=== PATIENT | female | born 1990 | race Caucasian/White ===

== ENCOUNTER 2020-11-17 08:37 | Inpatient (IN) | payer MEDICAID, SELFPAY ==
[2020-11-17] VITALS (7 sets, daily range): BP systolic 102–134; BP diastolic 64–86; PULSE 65–88; RESP 16–18; TEMP 36.4–37.4; O2SAT 94–99; BMI 30.8
--- NOTE | 2020-11-17 08:46 | XR_ITS ---
EXAMINATION: RIGHT LOWER LEG AND RIGHT FOOT X-RAY CLINICAL INFORMATION: Fall COMPARISON: Previous right knee and right ankle x-ray July 2019 TECHNIQUE: 2 views of the right lower leg and 2 views of the right foot FINDINGS: Right lower leg: There is an oblique fracture of the distal shaft of the tibia. There is 1 cm lateral and posterior displacement of the distal tibia with respect to the more proximal shaft. There is an oblique fracture of the proximal fibular shaft. There is 8 mm anterior displacement of the distal shaft with respect to the more proximal fibular head and the knee joint and ankle joint appear unremarkable. Right foot: Frontal view is limited due to dressing or stabilization material. No foot fracture or dislocation is seen. Joint spaces and soft tissues are unremarkable. Oblique fracture of the distal shaft of the tibia is noted. XR/XR foot RT 2V IMPRESSION: Right lower leg: Oblique displaced fractures of the distal shaft of the tibia and proximal shaft of the fibula. Right foot: Limited but unremarkable exam
--- NOTE | 2020-11-17 08:46 | XR_ITS ---
EXAMINATION: RIGHT LOWER LEG AND RIGHT FOOT X-RAY CLINICAL INFORMATION: Fall COMPARISON: Previous right knee and right ankle x-ray July 2019 TECHNIQUE: 2 views of the right lower leg and 2 views of the right foot FINDINGS: Right lower leg: There is an oblique fracture of the distal shaft of the tibia. There is 1 cm lateral and posterior displacement of the distal tibia with respect to the more proximal shaft. There is an oblique fracture of the proximal fibular shaft. There is 8 mm anterior displacement of the distal shaft with respect to the more proximal fibular head and the knee joint and ankle joint appear unremarkable. Right foot: Frontal view is limited due to dressing or stabilization material. No foot fracture or dislocation is seen. Joint spaces and soft tissues are unremarkable. Oblique fracture of the distal shaft of the tibia is noted. XR/XR tibia fibula RT 2V IMPRESSION: Right lower leg: Oblique displaced fractures of the distal shaft of the tibia and proximal shaft of the fibula. Right foot: Limited but unremarkable exam
[2020-11-17] MEDS: oxyCODONE HCl Immed Release 5 MG TABLET PO ×3 (09:09→19:44)
--- NOTE | 2020-11-17 09:41 | ED_ITS ---
HPI - Extremity Injury (Lower) General Chief Complaint: Extremity Injury, Lower <Ishan García NP - Last Filed: 11/17/20 15:52> Stated Complaint: R ANKLE PAIN <Ishan García NP - Last Filed: 11/17/20 15:52> Time Seen by Provider: 11/17/20 08:46 <Ishan García NP - Last Filed: 11/17/20 15:52> Source: EMS <Ishan García NP - Last Filed: 11/17/20 15:52> Mode of arrival: EMS <Ishan García NP - Last Filed: 11/17/20 15:52> Limitations: no limitations <Ishan García NP - Last Filed: 11/17/20 15:52> History of Present Illness HPI Narrative: This is a pleasant 30-year-old female who denies any significant past medical history she does have a young child with autism and she is 1 month and for the young child that she has has autism and on a daily basis she gets a surprise for him this morning she got a note book for him to draw which she had her car she when out to get this there was ice as she made her way back into the house she slipped on ice and almost instantly had pain in the right lower extremity and unable to ambulate or bear weight on it. Again she is 1 month she does not breastfeed. She has otherwise had unremarkable period. She arrives via EMS with with slight swelling distal medial wright area where she is having pain. She denies any other injury, head strike or torso injury. <Ishan García NP - Last Filed: 11/17/20 15:52> MD complaint: leg injury and ankle injury <Ishan García NP - Last Filed: 11/17/20 15:52> Other symptoms: none <Ishan García NP - Last Filed: 11/17/20 15:52> Treatments prior to arrival: cold therapy <Ishan García NP - Last Filed: 11/17/20 15:52> Related Data Home Medications: Previous Rx's Medication Instructions Recorded acetaminophen 650 mg PO Q6H 30 Days #240 tab 11/19/20 sennosides [Senna Lax] 17.2 mg PO BID 30 Days #120 tab 11/19/20 oxycodone 5 mg tablet 5 mg PO Q6H PRN 7 Days #28 tab 11/25/20 <Ishan García NP - Last Filed: 11/17/20 15:52> Allergies/Adverse Reactions: Allergies Allergy/AdvReac Type Severity Reaction Status Date / Time No Known Allergies Allergy Verified 11/18/20 07:18 <Ishan García NP - Last Filed: 11/17/20 15:52> Review of Systems Review of Systems: Constitutional: No Weight loss, No Fever, No Chills, No Night Sweats, No Fatigue, No Malaise ENT/Mouth: No Hearing loss, No Ear Pain, No Nasal Congestion, No Sinus Pain, No Hoarseness, No sore throat, No Rhinorrhea, No Swallowing Difficulty Eyes: No Eye Pain, No Swelling, No Redness, No Foreign Body, No Discharge, No Vision Changes Cardiovascular: No Chest Pain, No SOB, No Dyspnea on Exertion, No Orthopnea, No Edema, No Palpitations Respiratory: No Cough, No Sputum, No Wheezing, No Smoke Exposure, No Dyspnea Gastrointestinal: Negative Genitourinary: Negative Musculoskeletal: No joint pain, No Myalgias, No Joint Swelling, as noted per HPI Skin: No Skin Lesions, No rash Neuro: No Weakness, No Numbness, No Paresthesias, No Loss of Consciousness, No D izziness, No Headache Psych: No Social Issues Heme/Lymph: Negative Endocrine: Negative <Ishan García NP - Last Filed: 11/17/20 15:52> Yes all other systems are reviewed and are negative <Ishan García NP - Last Filed: 11/17/20 15:52> [facility] Past Medical History Medical History: Medical History (Updated 11/27/20 @ 00:01 by Krystal Wang) Anemia Back pain Leukocytosis <Ishan García NP - Last Filed: 11/17/20 15:52> Surgical History: Surgical History (Updated 11/18/20 @ 07:33 by Alice Umana) H/O reduction mammoplasty Hx laparoscopic cholecystectomy <Ishan García NP - Last Filed: 11/17/20 15:52> Social History Social History: Social History Household Members: Family Housing: House Smoking Status: Light tobacco smoker Tobacco Type: Cigarette Advance Directives Date on File: 11/17/20 service: No Current occupational status: employed <Ishan García NP - Last Filed: 11/17/20 15:52> Physical Exam Vital Signs: Vital Signs: Last Vital Signs Temp 98.2 F 11/19/20 07:38 Pulse 85 11/19/20 07:50 Resp 18 11/19/20 07:38 BP 110/63 11/19/20 07:50 Pulse Ox 96 11/19/20 07:50 Body Mass Index 30.8 Reviewed <Ishan García NP - Last Filed: 11/17/20 15:52> Vital Signs: Last Vital Signs Temp 98.2 F 11/19/20 07:38 Pulse 85 11/19/20 07:50 Resp 18 11/19/20 07:38 BP 110/63 11/19/20 07:50 Pulse Ox 96 11/19/20 07:50 Body Mass Index 30.8 <Ignacio Meléndez MD - Last Filed: 11/30/20 07:04> Const: Other: Resting comfortably no acute restless but when she moved EMS stretcher to the hospital gurney grimacing and complaining of pain. <Ishan García NP - Last Filed: 11/17/20 15:52> General: cooperative; No intoxicated appearing <Ishan García NP - Last Filed: 11/17/20 15:52> Nutritional Appearance: average body habitus <Ishan García NP - Last Filed: 11/17/20 15:52> Orientation/consciousness: patient oriented x3 <Ishan García NP - Last Filed: 11/17/20 15:52> HENMT: Head: Yes normal to inspection <Ishan García NP - Last Filed: 11/17/20 15:52> Ears: hearing grossly normal bilaterally <Ishan García NP - Last Filed: 11/17/20 15:52> Eyes: General: appearance normal, both eyes and all related structures <Ishan García NP - Last Filed: 11/17/20 15:52> Visual Sainz: normal visual sainz by confrontation <Ishan García NP - Last Filed: 11/17/20 15:52> Neck: Neck: Yes normal visual inspection, No positive Brudzinski's sign, No positive Kernig's sign and No tender <[facility] Raquel [facility] Last Filed: 11/17/20 15:52> Thyroid: Thyroid normal <[facility] Raquel [facility] Last Filed: 11/17/20 15:52> Chest: Chest palpation & inspection: normal inspection of the chest <[facility] García [facility] Last Filed: 11/17/20 15:52> Resp: Effort & Inspection: normal respiratory effort <[facility] Raquel [facility] Last Filed: 11/17/20 15:52> Auscultation: clear to auscultation bilaterally <[facility] García - Last Filed: 11/17/20 15:52> Cardio: Jugular venous distension: no JVD <[facility] Raquel [facility] Last Filed: 11/17/20 15:52> Rate: regular rate [facility] - Last Filed: 11/17/20 15:52> Rhythm: regular rhythm <[facility] Last Filed: 11/17/20 15:52> Heart sounds: S1 normal heart sound present and S2 normal heart sound present <[facility] García [facility] Last Filed: 11/17/20 15:52> GI: Inspection: Yes normal to inspection <[facility] Raquel [facility] Last Filed: 11/17/20 15:52> Percussion: Yes normal to percussion <[facility] García [facility] Last Filed: 11/17/20 15:52> Auscultation: normal bowel sounds <[facility] García [facility] Last Filed: 11/17/20 15:52> : General: Yes no CVA tenderness <[facility] García [facility] Last Filed: 11/17/20 15:52> Back/Spine/Pelvis: Back: no CVA tenderness <[facility] García - Last Filed: 11/17/20 15:52> Skin: General skin exam: no rashes or lesions noted <[facility] García [facility] Last Filed: 11/17/20 15:52> Neuro: General: patient oriented x3 <[facility] García, - Last Filed: 11/17/20 15:52> Extrem: General: Yes normal to inspection <Ishan García NP - Last Filed: 0 11/17/20 15:52> Course Course Course Narrative: In review otherwise healthy 30-year-old female presenting with right lower extremity pain status post slip and fall on ice AP/exam highly suspicious for acute fracture. Right lower extremity immobilized patient will get x-rays and p.o. analgesia. Otherwise no other medical complaints. Will consult Ortho p.r.n.. <Ishan García NP - Last Filed: 11/17/20 15:52> I have reviewed the chart <Ignacio Meléndez MD - Last Filed: 11/30/20 07:04> Reevaluation(s) Reevaluation #1: I reviewed the x-ray right after patient the x-ray soon after arrival shows findings consistent with oblique fracture of the distal shaft of the tibia and the proximal shaft of the fibula. I texted these images via Zhenaier text to orthopedic team and Lillie who discussed case with . Kristalum will come evaluate patient at bedside and likely plan will be for instrumentation tomorr ow. Does screening labs including screen COVID ordered. Findings reviewed with patient in great detail. <Ishan García NP - Last Filed: 11/17/20 15:52> Reevaluation #2: Placed in a posterior short leg splint with sugar-tong. Remains neurovascularly intact. Soft and no findings to suggest compartment. <Ishan García NP - Last Filed: 11/17/20 15:52> MDM - Extremity Injury (Lower) Differential Diagnosis Differential diagnosis: Likely ankle fracture <Ishan García NP - Last Filed: 11/17/20 15:52> Medical Records Attestation: I reviewed the patient's medical records. <Ishan García NP - Last Filed: 11/17/20 15:52> Lab Data Attestation: I reviewed the patient's lab results. <Ishan García NP - Last Filed: 11/17/20 15:52> Result diagrams: : 11/19/20 05:53 11/19/20 05:53 <Ishan García NP - Last Filed: 11/17/20 15:52> Labs: Lab Results 02/03/21 02/03/21 02/03/21 Range/Units 10:29 10:29 10:29 WBC 17.1 H (4.8-10.8) X10*3/uL RBC 4.19 L (4.20-5.50) X10*6/uL Hgb 11.4 L (12.0-16.0) g/dl Hct 35.2 L (37-47) % MCV 84.0 (80-98) fL MCH 27.2 (27.0-33.0) pg MCHC 32.4 (31.0-35.0) g/dl RDW 14.1 (11.0-16.0) % Plt Count 472 H (160-400) X10*3/uL MPV 10.0 (9.4-12.3) fL Immature Gran % (Auto) 0.5 H (0.0-0.4) % Neut % (Auto) 80.4 H (45-73) % Lymph % (Auto) 12.0 L (20-40) % Barnes % (Auto) 6.1 (2-11) % Eos % (Auto) 0.6 (0-4) % Baso % (Auto) 0.4 (0-2) % Lymph # (Auto) 2.0 (1.2-4.9) X10*3/uL Barnes # (Auto) 1.0 (0.1-1.2) X10*3/uL Eos # (Auto) 0.1 (0.0-0.4) X10*3/uL Baso # (Auto) 0.1 (0.0-0.2) X10*3/uL Abs Immat Gran (auto) 0.08 H (0.00-0.03) X10*3/uL Absolute Neuts (auto) 13.7 H (2.0-8.3) X10*3/uL Absolute Nucleated RBC 0.000 (0.0-0.012) X10*3/uL Nucleated RBC % (auto) 0.0 (0.0-0.2) /100WBC PT 12.9 (10.8-13.0) SEC INR 1.1 (0.9-1.1) APTT 43.5 H (24.1-38.0) SEC Sodium 140 (135-145) mmol/L Potassium 4.6 (3.3-5.1) mmol/L Chloride 108 (96-108) mmol/L Carbon Dioxide 25 (22-29) mmol/L Anion Gap 12 (12-20) BUN 12 (9-16) mg/dL Creatinine 0.84 (0.5-1.4) mg/dL Estim Creat Clear Calc 95.6 Estimated GFR > 60 Random Glucose 109 (60-115) mg/dL Calcium 9.0 (8.4-10.2) mg/dL Total Bilirubin < 0.2 (0.0-1.0) mg/dL AST 14 (5-31) U/L ALT 10 (0-31) U/L Alkaline Phosphatase 100 (39-117) U/L Total Protein 6.9 (6.5-8.0) g/dL Albumin 4.2 (3.5-5.0) g/dL Beta HCG, Quant < 2 mIU/mL COVID-19 (MARTIN) (Negative) COVID-19 Clin Com 11/17/20 Range/Units 10:53 WBC (4.8-10.8) X10*3/uL RBC (4.20-5.50) X10*6/uL Hgb (12.0-16.0) g/dl Hct (37-47) % MCV (80-98) fL MCH (27.0-33.0) pg MCHC (31.0-35.0) g/dl RDW (11.0-16.0) % Plt Count (160-400) X10*3/uL MPV (9.4-12.3) fL Immature Gran % (Auto) (0.0-0.4) % Neut % (Auto) (45-73) % Lymph % (Auto) (20-40) % Barnes % (Auto) (2-11) % Eos % (Auto) (0-4) % Baso % (Auto) (0-2) % Lymph # (Auto) (1.2-4.9) X10*3/uL Barnes # (Auto) (0.1-1.2) X10*3/uL Eos # (Auto) (0.0-0.4) X10*3/uL Baso # (Auto) (0.0-0.2) X10*3/uL Abs Immat Gran (auto) (0.00-0.03) X10*3/uL Absolute Neuts (auto) (2.0-8.3) X10*3/uL Absolute Nucleated RBC (0.0-0.012) X10*3/uL Nucleated RBC % (auto) (0.0-0.2) /100WBC PT (10.8-13.0) SEC INR (0.9-1.1) APTT (24.1-38.0) SEC Sodium (135-145) mmol/L Potassium (3.3-5.1) mmol/L Chloride (96-108) mmol/L Carbon Dioxide (22-29) mmol/L Anion Gap (12-20) BUN (9-16) mg/dL Creatinine (0.5-1.4) mg/dL Estim Creat Clear Calc Estimated GFR Random Glucose (60-115) mg/dL Calcium (8.4-10.2) mg/dL Total Bilirubin (0.0-1.0) mg/dL AST (5-31) U/L ALT (0-31) U/L Alkaline Phosphatase (39-117) U/L Total Protein (6.5-8.0) g/dL Albumin (3.5-5.0) g/dL Beta HCG, Quant mIU/mL COVID-19 (MARTIN) Negative (Negative) COVID-19 Clin Com See Note <Ishan García NP - Last Filed: 11/17/20 15:52> Lab Results 11/17/20 11/17/20 11/17/20 Range/Units 10:29 10:29 10:29 WBC 17.1 H (4.8-10.8) X10*3/uL RBC 4.19 L (4.20-5.50) X10*6/uL Hgb 11.4 L (12.0-16.0) g/dl Hct 35.2 L (37-47) % MCV 84.0 (80-98) fL MCH 27.2 (27.0-33.0) pg MCHC 32.4 (31.0-35.0) g/dl RDW 14.1 (11.0-16.0) % Plt Count 472 H (160-400) X10*3/uL MPV 10.0 (9.4-12.3) fL Immature Gran % (Auto) 0.5 H (0.0-0.4) % Neut % (Auto) 80.4 H (45-73) % Lymph % (Auto) 12.0 L (20-40) % Barnes % (Auto) 6.1 (2-11) % Eos % (Auto) 0.6 (0-4) % Baso % (Auto) 0.4 (0-2) % Lymph # (Auto) 2.0 (1.2-4.9) X10*3/uL Barnes # (Auto) 1.0 (0.1-1.2) X10*3/uL Eos # (Auto) 0.1 (0.0-0.4) X10*3/uL Baso # (Auto) 0.1 (0.0-0.2) X10*3/uL Abs Immat Gran (auto) 0.08 H (0.00-0.03) X10*3/uL Absolute Neuts (auto) 13.7 H (2.0-8.3) X10*3/uL Absolute Nucleated RBC 0.000 (0.0-0.012) X10*3/uL Nucleated RBC % (auto) 0.0 (0.0-0.2) /100WBC PT 12.9 (10.8-13.0) SEC INR 1.1 (0.9-1.1) APTT 43.5 H (24.1-38.0) SEC Sodium 140 (135-145) mmol/L Potassium 4.6 (3.3-5.1) mmol/L Chloride 108 (96-108) mmol/L Carbon Dioxide 25 (22-29) mmol/L Anion Gap 12 (12-20) BUN 12 (9-16) mg/dL Creatinine 0.84 (0.5-1.4) mg/dL Estim Creat Clear Calc 95.6 Estimated GFR > 60 Random Glucose 109 (60-115) mg/dL Calcium 9.0 (8.4-10.2) mg/dL Total Bilirubin < 0.2 (0.0-1.0) mg/dL AST 14 (5-31) U/L ALT 10 (0-31) U/L Alkaline Phosphatase 100 (39-117) U/L Total Protein 6.9 (6.5-8.0) g/dL Albumin 4.2 (3.5-5.0) g/dL Beta HCG, Quant < 2 mIU/mL COVID-19 (MARTIN) (Negative) COVID-19 Clin Com 11/17/20 Range/Units 10:53 WBC (4.8-10.8) X10*3/uL RBC (4.20-5.50) X10*6/uL Hgb (12.0-16.0) g/dl Hct (37-47) % MCV (80-98) fL MCH (27.0-33.0) pg MCHC (31.0-35.0) g/dl RDW (11.0-16.0) % Plt Count (160-400) X10*3/uL MPV (9.4-12.3) fL Immature Gran % (Auto) (0.0-0.4) % Neut % (Auto) (45-73) % Lymph % (Auto) (20-40) % Barnes % (Auto) (2-11) % Eos % (Auto) (0-4) % Baso % (Auto) (0-2) % Lymph # (Auto) (1.2-4.9) X10*3/uL Barnes # (Auto) (0.1-1.2) X10*3/uL Eos # (Auto) (0.0-0.4) X10*3/uL Baso # (Auto) (0.0-0.2) X10*3/uL Abs Immat Gran (auto) (0.00-0.03) X10*3/uL Absolute Neuts (auto) (2.0-8.3) X10*3/uL Absolute Nucleated RBC (0.0-0.012) X10*3/uL Nucleated RBC % (auto) (0.0-0.2) /100WBC PT (10.8-13.0) SEC INR (0.9-1.1) APTT (24.1-38.0) SEC Sodium (135-145) mmol/L Potassium (3.3-5.1) mmol/L Chloride (96-108) mmol/L Carbon Dioxide (22-29) mmol/L Anion Gap (12-20) BUN (9-16) mg/dL Creatinine (0.5-1.4) mg/dL Estim Creat Clear Calc Estimated GFR Random Glucose (60-115) mg/dL Calcium (8.4-10.2) mg/dL Total Bilirubin (0.0-1.0) mg/dL AST (5-31) U/L ALT (0-31) U/L Alkaline Phosphatase (39-117) U/L Total Protein (6.5-8.0) g/dL Albumin (3.5-5.0) g/dL Beta HCG, Quant mIU/mL COVID-19 ([facility]ARTIN) Negative (Negative) COVID-19 Clin Com See Note <Ignacio Meléndez MD - Last Filed: 11/30/20 07:04> Imaging Data Right tib fib, ankle x-ray: Radiologist's impression: [address] [id number] ReportSigned Patient: Samantha Stubbs#: [id number]: [id number] :[id number]/Sex: 30 / FADM Date: 11/17/20Loc: EDAttending Dr: Ordering Physician: Ishan García NP Date of Service: 11/17/20 Procedure(s): XR tibia fibula RT 2V Accession Number(s): [id number] cc: Ishan García NP~ EXAMINATION: RIGHT LOWER LEG AND RIGHT FOOT X-RAY CLINICAL INFORMATION: Fall COMPARISON: Previous right knee and right ankle x-ray July 2019 TECHNIQUE: 2 views of the right lower leg and 2 views of the right foot FINDINGS: Right lower leg: There is an oblique fracture of the distal shaft of the tibia. There is 1 cm lateral and posterior displacement of the distal tibia with respect to the more proximal shaft. There is an oblique fracture of the proximal fibular shaft. There is 8 mm anterior displacement of the distal shaft with respect to the more proximal fibular head and the knee joint and ankle joint appear unremarkable. Right foot: Frontal view is limited due to dressing or stabilization material. No foot fracture or dislocation is seen. Joint spaces and soft tissues are unremarkable. Oblique fracture of the distal shaft of the tibia is noted. XR/XR tibia fibula RT 2V IMPRESSION: Right lower leg: Oblique displaced fractures of the distal shaft of the tibia and proximal shaft of the fibula. Right foot: Limited but unremarkable exam Dictated By:JANNET DEL RIOigned By:<Electronically signed by JANNET DEL RIO MD in OV>11/17/20 0943 DD/ [id number]/TT: Associate Professor Plant Pathology: LAUREN <Ishan García NP - Last Filed: 11/17/20 15:52> Discharge Plan Discharge Clinical Impression: Tibia/fibula fracture <Ishan García NP - Last Filed: 11/17/20 15:52> Patient Disposition: Admitted As Inpatient <Ishan García NP - Last Filed: 11/17/20 15:52> Interventions: Admission Worksheet (ED) Last Done: 11/17/20 20:32 <sIhan García NP - Last Filed: 11/17/20 15:52> Discharge Date/Time: 11/17/20 20:42 <Ishan García NP - Last Filed: 11/17/20 15:52>
[2020-11-17 10:34] LABS: MANUAL DIFF FLAG NO
[2020-11-17] MEDS: ondansetron HCL 4 MG/2 ML VIAL IVPUSH ×2 (10:36→17:12)
--- NOTE | 2020-11-17 10:36 | PM.CNOR ---
History of Present Illness HPI Consult date: 11/17/20 Consult reason: fracture Chief complaint: R ANKLE PAIN PMFSH Past Medical History Medical History (Updated 11/17/20 @ 08:59 by Tiana Pringle) Gallstone Surgical History Surgical History (Updated 11/17/20 @ 08:59 by Tiana Pringle) History of breast augmentation Social History Social History Smoked in Last 30 Days: No Use of substances other than those prescribed or required for medical reasons: No Advance Directives: Yes Advance Directives Information Provided: Yes Advance Directives on File: No Meds Allergies Allergy/AdvReac Type Severity Reaction Status Date / Time No Known Allergies Allergy Unverified 07/01/20 17:19 Physical Exam Vital Signs: Vital Signs: Last Vital Signs Temp 98.3 F 11/17/20 08:54 Pulse 81 11/17/20 08:54 Resp 16 11/17/20 08:54 BP 134/79 11/17/20 08:54 Pulse Ox 97 11/17/20 08:54 Body Mass Index 30.8 Results Labs Result Diagrams: 11/17/20 10:29 11/17/20 10:29 Labs: All other labs normal.
[2020-11-17] MEDS: Morphine Sulfate 4 MG/ML CARTRIDGE IVPUSH (10:38)
[2020-11-17] MEDS: 0.9 % Sodium Chloride 1,000 ML 999 ML IV (10:39)
[2020-11-17 10:40] LABS: Basophils Absolute Auto 0.1 X10*3/uL (0.0-0.2); Basophils Percent Auto 0.4 % (0-2); Eosinophils Absolute Auto 0.1 X10*3/uL (0.0-0.4); Eosinophils Percent Auto 0.6 % (0-4); Hematocrit 35.2 % (37-47); Hemoglobin 11.4 g/dl (12.0-16.0); Imm Gran Abs Auto 0.08 X10*3/uL (0.00-0.03); Imm Gran Pct Auto 0.5 % (0.0-0.4); Mean Corpuscular HGB Conc 32.4 g/dl (31.0-35.0); Mean Corpuscular Hemoglobin 27.2 pg (27.0-33.0); Monocytes Percent Auto 6.1 % (2-11); Neutrophils Absolute Auto 13.7 X10*3/uL (2.0-8.3); Neutrophils Percent Auto 80.4 % (45-73); Platelet Count 472 X10*3/uL (160-400); Red Blood Count 4.19 X10*6/uL (4.20-5.50); Red Cell Distribution Width 14.1 % (11.0-16.0); White Blood Count 17.1 X10*3/uL (4.8-10.8)
[2020-11-17 10:44] LABS: INTERNATIONAL NORM RATIO 1.1 (0.9-1.1); Prothrombin Time 12.9 SEC (10.8-13.0)
[2020-11-17 10:46] LABS: Partial Thromboplastin Time 43.5 SEC (24.1-38.0)
--- NOTE | 2020-11-17 11:00 | PC.NURSE ---
POSTERIOR SHORT LEG SPLINT DONE BY SACHA POLANCO.
[2020-11-17 11:04] LABS: Alanine Aminotransferase 10 U/L (0-31); Albumin Level 4.2 g/dL (3.5-5.0); Alkaline Phosphatase 100 U/L (39-117); Anion Gap 12 (12-20); Aspartate Amino Transferase 14 U/L (5-31); Bilirubin Total < 0.2 mg/dL (0.0-1.0); Blood Urea Nitrogen 12 mg/dL (9-16); Carbon Dioxide 25 mmol/L (22-29); Chloride 108 mmol/L (96-108); Creatinine Clr Calc Pharmacy 95.6; Estimated Glomerular Filt Rate > 60; Glucose Random 109 mg/dL (60-115); Potassium 4.6 mmol/L (3.3-5.1); Sodium 140 mmol/L (135-145); Total Protein 6.9 g/dL (6.5-8.0)
[2020-11-17 11:10] LABS: HCG Quantitative < 2 mIU/mL
[2020-11-17 11:21] LABS: COVID-19 Test Negative (Negative); IDNOW Serial# 9DD0AD1C
--- NOTE | 2020-11-17 14:51 | P.HPOP_ITS ---
History of Present Illness History of Present Illness Date of Service: 11/17/20 Chief complaint: Tibia fx Narrative: Samantha Stubbs is a 30 year old female who presented to the ED this morning after sustaining a slip and fall on ice. She states that after the fall she was unable to ambulate or WB. She came to the ED where x-rays were obtained and she was found to have an oblique displaced fracture of the distal shaft of the tibia as well as the proximal shaft of the fibula. Orthopedics was then consulted for further management. Review of Systems Review of Systems: Yes all other systems are reviewed and are negative [facility] Past Medical History Medical History (Updated 11/17/20 @ 14:59 by Lillie Nesbitt PA-C) Gallstone Surgical History Surgical History (Updated 11/17/20 @ 08:59 by Tiana Pringle) History of breast augmentation Social History Social History Smoked in Last 30 Days: No Use of substances other than those prescribed or required for medical reasons: No Advance Directives: Yes Advance Directives Information Provided: Yes Advance Directives on File: No Meds Allergies Allergy/AdvReac Type Severity Reaction Status Date / Time No Known Allergies Allergy Unverified 07/01/20 17:19 Home Medications Medication Instructions Recorded Confirmed Type ibuprofen 600 mg PO Q6H PRN 11/17/20 11/17/20 History Physical Exam Vital Signs: Vital Signs: Last Vital Signs Temp 98.3 F 11/17/20 08:54 Pulse 66 11/17/20 10:55 Resp 18 11/17/20 10:55 BP 112/71 11/17/20 10:55 Pulse Ox 99 11/17/20 10:55 Body Mass Index 30.8 Const: General: cooperative, healthy appearing, comfortable, no acute distress, well developed, alert and awake Orientation/consciousness: patient oriented x3 HENMT: Head: Yes normal to inspection, Yes normocephalic and Yes atraumatic Eyes: General: appearance normal, both eyes and all related structures Neck: Neck: Yes normal visual inspection and Yes no lymphadenopathy Resp: Effort & Inspection: normal respiratory effort and able to speak in complete sentences Cardio: Rate: regular rate Peripheral pulses: Peripheral pulses 2+ throughout GI: Inspection: Yes normal to inspection Palpation (GI): Soft to palpation Skin: General skin exam: no rashes or lesions noted Neuro: General: patient oriented x3 Extrem: Other: Right lower extremity no redness, ecchymosis or obvious deformity. Patient has some mild swelling over the fracture site. Palpation over the fracture site reveals discomfort. Patient is able to dorsiflex and plantar flex the rt foot and move all digits. Pedal pulse intact. Sensation intact and equal bilaterally. Normal capillary refill. Psych: Mental Status: mental status grossly normal Results Labs Result Diagrams: 11/17/20 10:11/17/20 10: Labs: Abnormal lab results 11/17/20 11/17/20 Range/Units 10: 10: WBC 17.1 H (4.8-10.8) X10*3/uL RBC 4.19 L (4.20-5.50) X10*6/uL Hgb 11.4 L (12.0-16.0) g/dl Hct 35.2 L (37-47) % Plt Count 472 H (160-400) X10*3/uL Immature Gran % (Auto) 0.5 H (0.0-0.4) % Neut % (Auto) 80.4 H (45-73) % Lymph % (Auto) 12.0 L (20-40) % Abs Immat Gran (auto) 0.08 H (0.00-0.03) X10*3/uL Absolute Neuts (auto) 13.7 H (2.0-8.3) X10*3/uL APTT 43.5 H (24.1-38.0) SEC H & H 11/17/20 Range/Units 10:29 Hgb 11.4 L (12.0-16.0) g/dl Hct 35.2 L (37-47) % Coagulation 11/17/20 Range/Units 10:29 INR 1.1 (0.9-1.1) All other labs normal. Assessment and Plan (1) Tibia/fibula fracture: Status: Acute I discussed the case with Dr. Brown and explained the extent of the injury to the patient and options available which include surgical intervention. I explained the procedure in detail along with the length of recovery and rehab course. I explained the risk, benefits and alternatives. Risk including, but not limited to infection, blood clots, bleeding, non union or malunion and nerve/tissue damage to surrounding areas. I answered all their questions and with their understanding they have consented to move forward with Operative Fixation of the right tibia. The patient will be T&S, med clearance obtained and NPO after midnight.
[2020-11-17 17:09] LABS: MANUAL DIFF FLAG NO
[2020-11-17 17:12] LABS: Basophils Percent Auto 0.2 % (0-2); Eosinophils Absolute Auto 0.1 X10*3/uL (0.0-0.4); Eosinophils Percent Auto 0.4 % (0-4); Hemoglobin 10.7 g/dl (12.0-16.0); Imm Gran Abs Auto 0.04 X10*3/uL (0.00-0.03); Imm Gran Pct Auto 0.3 % (0.0-0.4); Lymphocytes Absolute Auto 2.2 X10*3/uL (1.2-4.9); Lymphocytes Percent Auto 16.6 % (20-40); Mean Corpuscular HGB Conc 32.4 g/dl (31.0-35.0); Mean Corpuscular Volume 83.1 fL (80-98); Mean Platelet Volume 10.1 fL (9.4-12.3); Monocytes Absolute Auto 0.9 X10*3/uL (0.1-1.2); Monocytes Percent Auto 6.4 % (2-11); Neutrophils Absolute Auto 10.3 X10*3/uL (2.0-8.3); Neutrophils Percent Auto 76.1 % (45-73); Platelet Count 482 X10*3/uL (160-400); Red Blood Count 3.97 X10*6/uL (4.20-5.50); Red Cell Distribution Width 13.8 % (11.0-16.0); White Blood Count 13.5 X10*3/uL (4.8-10.8)
[2020-11-17 17:12] LABS: Glucose Urine UA NEG (NEG); Leukocyte Esterase Urine NEG (NEG); Nitrite Urine NEG (NEG); Specific Gravity - Urine 1.015 (1.005-1.025); Urine Blood NEG (NEG); Urine Ketones NEG (NEG); Urine Protein NEG (NEG-TRACE)
[2020-11-17] MEDS: Acetaminophen 325 MG TABLET 650 MG PO (17:12)
[2020-11-17 17:14] LABS: Appearance Urine CLEAR; Color Urine YELLOW
[2020-11-17] MEDS: Morphine Sulfate 2 MG/ML CARTRIDGE IVPUSH ×2 (17:15→21:30)
[2020-11-17] MEDS: Lactated Ringers 1,000 ML 125 ML IVCONT (17:24)
[2020-11-17] MEDS: 0.9 % Sodium Chloride Flush 3 ML SYRINGE IVFLUSH (17:25)
--- NOTE | 2020-11-17 17:25 | P.CONAN_ITS ---
HPI - Anesthesia Eval Consult details Narrative: 30yo female patient here for Right tibial IM nailing Patient is [facility] month post [facility] Past Medical History Medical History (Updated 11/18/20 @ 07:51 by Alice Umana) Anemia Back pain Family History Family history of problems with anesthesia: No Surgical History Surgical History (Updated 11/18/20 @ 07:33 by Alice Umana) H/O reduction mammoplasty Hx laparoscopic cholecystectomy History of Problems with Anesthesia: No Social History Social History Household Members: Family Housing: House Do you presently have visiting nurse or other home services: No Smoking Status: Light tobacco smoker Tobacco Type: Cigarette Smoked in Last 30 Days: Yes Patient Interested in Nicotine Replacement: No Patient Given Instructions on How to Stop Smoking: Yes Date Education Initiated: 11/17/20 Use of substances other than those prescribed or required for medical reasons: No Currently Displaying Signs/Symptoms of Drug Intoxication Withdrawal: No Have you been hit, kicked, punched, or otherwise hurt by someone within the past year? If so, by whom?: No Do you feel safe in your current relationship?: Yes Is there a partner from a previous relationship who is making you feel unsafe now?: No Are you made to feel afraid or neglected: No Sikhism Healthcare Practices: jewish Advance Directives: Yes Advance Directives Information Provided: Yes Advance Directives on File: No Advance Directives Date on File: 11/17/20 Do you have thoughts of harming others: None Do you have a plan to hurt others: No Plan Recently lost weight without trying: No Meds Allergies Allergy/AdvReac Type Severity Reaction Status Date / Time No Known Allergies Allergy Verified 11/18/20 07:18 Home Medications Medication Instructions Recorded Confirmed Type ibuprofen 600 mg PO Q6H PRN 11/17/20 11/17/20 History Exam Exam Date and Time: November 17, 2020 1725 Height,Weight and Vital Signs: Height 5 ft 3 in Weight 78.925 kg Vital Signs Temp Pulse Resp BP Pulse Ox 11/18/20 06:52 98.5 F 74 15 119/71 97 11/18/20 03:49 98.8 F 69 18 107/69 96 11/17/20 23:46 97.5 F 65 18 106/65 98 11/17/20 20:55 97.8 F 70 18 129/74 94 11/17/20 19:50 99.4 F 65 16 113/64 97 11/17/20 18:00 16 11/17/20 15:41 98.2 F 65 16 102/65 97 11/17/20 10:55 66 18 112/71 99 11/17/20 08:54 98.3 F 81 16 134/79 97 Pertinent Lab Results Pertinent Lab Results: Laboratory Tests 11/17/20 11/17/20 11/17/20 10:29 10:29 10:29 WBC 17.1 H RBC 4.19 L Hgb 11.4 L Hct 35.2 L MCV 84.0 MCH 27.2 MCHC 32.4 RDW 14.1 Plt Count 472 H MPV 10.0 Immature Gran % (Auto) 0.5 H Neut % (Auto) 80.4 H Lymph % (Auto) 12.0 L [place] % (Auto) 6.1 Eos % (Auto) 0.6 Baso % (Auto) 0.4 Lymph # (Auto) 2.0 [place] # (Auto) 1.0 Eos # (Auto) 0.1 Baso # (Auto) 0.1 Abs Immat Gran (auto) 0.08 H Absolute Neuts (auto) 13.7 H Absolute Nucleated RBC 0.000 Nucleated RBC % (auto) 0.0 PT 12.9 INR 1.1 APTT 43.5 H Sodium 140 Potassium 4.6 Chloride 108 Carbon Dioxide 25 Anion Gap 12 BUN 12 Creatinine 0.84 Estim Creat Clear Calc 95.6 Estimated GFR > 60 Random Glucose 109 Calcium 9.0 Total Bilirubin < 0.2 AST 14 ALT 10 Alkaline Phosphatase 100 Total Protein 6.9 Albumin 4.2 Beta HCG, Quant < 2 Urine Color Urine Appearance Urine pH Ur Specific [place] Urine Protein Urine Glucose (UA) Urine Ketones Urine Blood Urine Nitrite Ur Leukocyte Esterase COVID-19 ([facility]) COVID-19 Clin Com Blood Type 11/17/20 11/17/20 11/17/20 10:53 16:59 17:00 WBC 13.5 H RBC 3.97 L Hgb 10.7 L Hct 33.0 L MCV 83.1 MCH 27.0 MCHC 32.4 RDW 13.8 Plt Count 482 H MPV 10.1 Immature Gran % (Auto) 0.3 Neut % (Auto) 76.1 H Lymph % (Auto) 16.6 L [place] % (Auto) 6.4 Eos % (Auto) 0.4 Baso % (Auto) 0.2 Lymph # (Auto) 2.2 [place] # (Auto) 0.9 Eos # (Auto) 0.1 Baso # (Auto) 0.0 Abs Immat Gran (auto) 0.04 H Absolute Neuts (auto) 10.3 H Absolute Nucleated RBC 0.000 Nucleated RBC % (auto) 0.0 PT INR APTT Sodium Potassium Chloride Carbon Dioxide Anion Gap BUN Creatinine Estim Creat Clear Calc Estimated GFR Random Glucose Calcium Total Bilirubin AST ALT Alkaline Phosphatase Total Protein Albumin Beta HCG, Quant Urine Color YELLOW Urine Appearance CLEAR Urine pH 6.0 Ur Specific [place] 1.015 Urine Protein NEG Urine Glucose (UA) NEG Urine Ketones NEG Urine Blood NEG Urine Nitrite NEG Ur Leukocyte Esterase NEG COVID-19 ([facility]) Negative COVID-19 Clin Com See Note Blood Type 11/17/20 17:00 WBC RBC Hgb Hct MCV MCH MCHC RDW Plt Count MPV Immature Gran % (Auto) Neut % (Auto) Lymph % (Auto) [place] % (Auto) Eos % (Auto) Baso % (Auto) Lymph # (Auto) [place] # (Auto) Eos # (Auto) Baso # (Auto) Abs Immat Gran (auto) Absolute Neuts (auto) Absolute Nucleated RBC Nucleated RBC % (auto) PT INR APTT Sodium Potassium Chloride Carbon Dioxide Anion Gap BUN Creatinine Estim Creat Clear Calc Estimated GFR Random Glucose Calcium Total Bilirubin AST ALT Alkaline Phosphatase Total Protein Albumin Beta HCG, Quant Urine Color Urine Appearance Urine pH Ur Specific [place] Urine Protein Urine Glucose (UA) Urine Ketones Urine Blood Urine Nitrite Ur Leukocyte Esterase COVID-19 ([facility]) COVID-19 Clin Com Blood Type O Positive Airway Mallampati Class: II (Patient has double studs on tongue. States unable to remove. Aware of possible trauma from ETT/LMA, pressure, possible dislodgement and aspiration or loss, cain abd still states cannot remove. Wishes to proceed.) TM Dist: >3cm Neck ROM: Full Loose/Missing/Broken Teeth: No Heart: RRR Lungs: CTAB Assessment and Plan Assessment Anesthesia Assessment: Anesthesia Plan Discussed and Chart Reviewed Final Anesthetic Review NPO: Yes ASA Class: II Final Preanesthetic Review: No Changes in Pt Med Stat, Meds/Allgs Chart Reviewed, Consent Obtained/Reviewed and Anes Risks/Benef Reviewed Patient Risk: Low Procedure Risk: Intermediate Assessment/Block/Sedation in SS: Assess/Block/Sedation-SS Anesthetic Plan Anesthetic Plan: GA Disposition: Standard PACU
[2020-11-17 17:30] LABS: Mucus Urine TRACE /LPF; RBC Urine 0-2 /HPF (0); Squamous Epithelial Cell Urine 1+ /LPF; WBC Urine 0-2 /HPF (0-4)
[2020-11-17 17:47] LABS: Anion Gap 12 (12-20); Blood Urea Nitrogen 10 mg/dL (9-16); Calcium 8.7 mg/dL (8.4-10.2); Carbon Dioxide 25 mmol/L (22-29); Chloride 109 mmol/L (96-108); Creatinine Clr Calc Pharmacy 97.9; Estimated Glomerular Filt Rate > 60; Glucose Random 95 mg/dL (60-115); Potassium 4.7 mmol/L (3.3-5.1); Sodium 141 mmol/L (135-145)
--- NOTE | 2020-11-17 19:07 | P.CONIM_ITS ---
History of Present Illness Data of Consult Service Date: 11/17/20 Requesting physician: Carol Brown Primary Care Provider: Unknown Physician HPI Reason for consult: Medical Management 30-year-old woman admitted by Orthopedic surgery. She sustained a fall on ice and sustained right lower leg oblique displaced fractures of the distal shaft of the tibia and proximal shaft of the fibula. She was noted to have a mildly elevated white blood cell count, stable vital signs. She received oxycodone, Zofran, morphine and a L of IV fluids. Review of Systems Review of Systems: Denies any recent fever chills or decrease in appetite respiratory denies any shortness of breath coverage production cardiovascular is adjustment of any PND or edema gastrointestinal denies any dysphagia abdominal pain nausea vomiting or diarrhea genitourinary denies any dysuria frequency or hematuria musculoskeletal denies any joint pain or swelling neuropsych denies any weakness or seizures all other systems reviewed are negative [facility] Medical History (Updated 11/17/20 @ 15:51 by Ishan García NP) Gallstone Surgical History (Updated 11/17/20 @ 08:59 by Tiana Pringle) History of breast augmentation Social History Smoked in Last 30 Days: No Use of substances other than those prescribed or required for medical reasons: No Advance Directives: Yes Advance Directives Information Provided: Yes Advance Directives on File: No Meds Allergies Allergy/AdvReac Type Severity Reaction Status Date / Time No Known Allergies Allergy Unverified 07/01/20 17:19 Home Medications Medication Instructions Recorded Confirmed Type ibuprofen 600 mg PO Q6H PRN 11/17/20 11/17/20 History Physical Exam Vital Signs and Narrative: Vital Signs: Last Vital Signs Temp 98.2 F 11/17/20 15:41 Pulse 65 11/17/20 15:41 Resp 16 11/17/20 18:00 BP 102/65 11/17/20 15:41 Pulse Ox 97 11/17/20 15:41 Body Mass Index 30.8 Appearing in no acute distress head is normocephalic atraumatic eyes pupils are PERRLA sclera is anicteric mouth throat mucous membranes are intact and moist neck is supple no lymphadenopathy, no JVD noted lung sounds are clear to auscultation heart regular rate rhythm, clear S1, S2 positive bowel sounds, abdomen is soft, nontender neuro patient is alert x3, no focal deficits Results Labs CBC and Chem 7: 11/17/20 17:00 11/17/20 17:00 Labs: Laboratory Results - last 24 hr 11/17/20 11/17/20 11/17/20 10:29 10:29 10:29 MCV 84.0 MCH 27.2 MCHC 32.4 RDW 14.1 Plt Count 472 H MPV 10.0 Immature Gran % (Auto) 0.5 H Neut % (Auto) 80.4 H Lymph % (Auto) 12.0 L [place] % (Auto) 6.1 Eos % (Auto) 0.6 Baso % (Auto) 0.4 Lymph # (Auto) 2.0 [place] # (Auto) 1.0 Eos # (Auto) 0.1 Baso # (Auto) 0.1 Abs Immat Gran (auto) 0.08 H Absolute Neuts (auto) 13.7 H Absolute Nucleated RBC 0.000 Nucleated RBC % (auto) 0.0 PT 12.9 INR 1.1 APTT 43.5 H Anion Gap 12 Estim Creat Clear Calc 95.6 Estimated GFR > 60 Random Glucose 109 Calcium 9.0 Total Bilirubin < 0.2 AST 14 ALT 10 Alkaline Phosphatase 100 Total Protein 6.9 Albumin 4.2 Beta HCG, Quant < 2 Urine Color Urine Appearance Urine pH Ur Specific [place] Urine Protein Urine Glucose (UA) Urine Ketones Urine Blood Urine Nitrite Ur Leukocyte Esterase Urine RBC Urine WBC Ur Squamous Epith Cells Urine Bacteria Urine Mucus COVID-19 ([facility]) COVID-19 Clin Com Blood Type Antibody Screen 11/17/20 11/17/20 11/17/20 10:53 16:59 17:00 MCV MCH MCHC RDW Plt Count MPV Immature Gran % (Auto) Neut % (Auto) Lymph % (Auto) [place] % (Auto) Eos % (Auto) Baso % (Auto) Lymph # (Auto) [place] # (Auto) Eos # (Auto) Baso # (Auto) Abs Immat Gran (auto) Absolute Neuts (auto) Absolute Nucleated RBC Nucleated RBC % (auto) PT INR APTT Anion Gap 12 Estim Creat Clear Calc 97.9 Estimated GFR > 60 Random Glucose 95 Calcium 8.7 Total Bilirubin AST ALT Alkaline Phosphatase Total Protein Albumin Beta HCG, Quant Urine Color YELLOW Urine Appearance CLEAR Urine pH 6.0 Ur Specific [place] 1.015 Urine Protein NEG Urine Glucose (UA) NEG Urine Ketones NEG Urine Blood NEG Urine Nitrite NEG Ur Leukocyte Esterase NEG Urine RBC 0-2 Urine WBC 0-2 Ur Squamous Epith Cells 1+ Urine Bacteria NONE Urine Mucus TRACE COVID-19 ([facility]) Negative COVID-19 Clin Com See Note Blood Type Antibody Screen 11/17/20 11/17/20 17:00 17:00 MCV 83.1 MCH 27.0 MCHC 32.4 RDW 13.8 Plt Count 482 H MPV 10.1 Immature Gran % (Auto) 0.3 Neut % (Auto) 76.1 H Lymph % (Auto) 16.6 L [place] % (Auto) 6.4 Eos % (Auto) 0.4 Baso % (Auto) 0.2 Lymph # (Auto) 2.2 [place] # (Auto) 0.9 Eos # (Auto) 0.1 Baso # (Auto) 0.0 Abs Immat Gran (auto) 0.04 H Absolute Neuts (auto) 10.3 H Absolute Nucleated RBC 0.000 Nucleated RBC % (auto) 0.0 PT INR APTT Anion Gap Estim Creat Clear Calc Estimated GFR Random Glucose Calcium Total Bilirubin AST ALT Alkaline Phosphatase Total Protein Albumin Beta HCG, Quant Urine Color Urine Appearance Urine pH Ur Specific [place] Urine Protein Urine Glucose (UA) Urine Ketones Urine Blood Urine Nitrite Ur Leukocyte Esterase Urine RBC Urine WBC Ur Squamous Epith Cells Urine Bacteria Urine Mucus COVID-19 ([facility]) COVID-19 Clin Com Blood Type O Positive Antibody Screen NEGATIVE Imaging Radiologist's Impressions: Impressions Foot X-Ray 11/17/20 08:46 IMPRESSION: Right lower leg: Oblique displaced fractures of the distal shaft of the tibia and proximal shaft of the fibula. Right foot: Limited but unremarkable exam Tibia/Fibula X-Ray 11/17/20 08:46 IMPRESSION: Right lower leg: Oblique displaced fractures of the distal shaft of the tibia and proximal shaft of the fibula. Right foot: Limited but unremarkable exam Assessment and Plan (1) Tibia/fibula fracture: Status: Acute 30-year-old woman admitted to Orthopedic surgery and is status post displaced fractures of the distal shaft of the tibia Tibial fracture. Management as per surgical team. Pain management. Leukocytosis. No signs of infection. Likely related to injury. Normocytic anemia. No signs of bleeding. Follow CBC daily. DVT prophylaxis as per surgical team. Case discussed with Dr. Null Full code
--- NOTE | 2020-11-17 20:31 | PC.NURSE ---
REPORT GIVEN TO MARTIR SANDOVAL ON S3. BED READY.
[2020-11-17] MEDS: Sennosides 8.6 MG TABLET 17.2 MG PO (21:30)
[2020-11-18] VITALS (18 sets, daily range): BP systolic 98–128; BP diastolic 54–77; PULSE 66–94; RESP 12–19; TEMP 36.6–37.3; O2SAT 94–100; BMI 30.9
[2020-11-18] MEDS: Lactated Ringers 1,000 ML 125 ML IVCONT ×3 (01:38→15:19)
[2020-11-18] MEDS: oxyCODONE HCl Immed Release 5 MG TABLET PO ×2 (02:01→16:14)
[2020-11-18 06:04] LABS: MANUAL DIFF FLAG NO
[2020-11-18 06:14] LABS: Basophils Percent Auto 0.2 % (0-2); Eosinophils Absolute Auto 0.2 X10*3/uL (0.0-0.4); Eosinophils Percent Auto 2.2 % (0-4); Hematocrit 30.7 % (37-47); Hemoglobin 9.8 g/dl (12.0-16.0); Imm Gran Abs Auto 0.02 X10*3/uL (0.00-0.03); Imm Gran Pct Auto 0.2 % (0.0-0.4); Lymphocytes Absolute Auto 2.4 X10*3/uL (1.2-4.9); Lymphocytes Percent Auto 27.7 % (20-40); Mean Corpuscular HGB Conc 31.9 g/dl (31.0-35.0); Mean Corpuscular Hemoglobin 26.6 pg (27.0-33.0); Mean Corpuscular Volume 83.2 fL (80-98); Mean Platelet Volume 10.2 fL (9.4-12.3); Monocytes Absolute Auto 0.8 X10*3/uL (0.1-1.2); Monocytes Percent Auto 9.9 % (2-11); Neutrophils Absolute Auto 5.1 X10*3/uL (2.0-8.3); Neutrophils Percent Auto 59.8 % (45-73); Platelet Count 419 X10*3/uL (160-400); Red Blood Count 3.69 X10*6/uL (4.20-5.50); Red Cell Distribution Width 13.7 % (11.0-16.0); White Blood Count 8.5 X10*3/uL (4.8-10.8)
--- NOTE | 2020-11-18 07:13 | FL_ITS ---
EXAMINATION: XR FLUOROSCOPY WITH IMAGES CLINICAL INFORMATION: Tibial IM nail right COMPARISON: Radiograph 11/17/2020 TECHNIQUE: Fluoroscopy performed by Dr. Medina Instrmariely. Fluoroscopy time: 3.5 minutes DAP: 0.145 mGycm2 Images: 4 FINDINGS: The distal tibial diaphyseal fracture is again noted. There is placement of an intramedullary now with one proximal and 2 distal interlocking screws transfixing the fracture with near-anatomic alignment. FL/FL guidance in OR IMPRESSION: Fluoroscopic guidance for internal fixation of the distal tibial fracture with near-anatomic alignment. Please refer to operative report for further information.
--- NOTE | 2020-11-18 07:25 | MHC.SHP ---
Pre-Procedural Eval Section A The patient is an INPATIENT: Yes Section B Chief Complaint: Tibia fx Allergies: Allergies Allergy/AdvReac Type Severity Reaction Status Date / Time No Known Allergies Allergy Verified 11/18/20 07:18 Plan I have reviewed the history and physical and performed a pertinent physical examination on my patient. No changes have occurred unless specified.
--- NOTE | 2020-11-18 09:23 | P.PCNOP_ITS ---
Brief Operative Note Date of procedure: 11/18/20 Pre-op diagnosis: RIGHT DISTAL THIRD TIBIA FRACTURE WITH FIBULAR FRACTURE Post-op diagnosis: same Procedure: OPERATIVE FIXATION RIGHT TIBIA WITH LOCKED TIBIAL NAIL Anesthesia: MALKA Surgeon: Carol Brown Accountant Manager: Lillie Nesbitt Estimated blood loss (mL): 50 Pathology: none sent Condition: stable Disposition: PACU
[2020-11-18] MEDS: oxyCODONE HCl Immed Release 5 MG TABLET 10 MG PO (10:02)
[2020-11-18] MEDS: Ketorolac Tromethamine 15 MG/ML VIAL IVPUSH (10:04)
[2020-11-18] MEDS: fentaNYL citrate/PF 100 MCG/2 ML VIAL 50 MCG IVPUSH ×2 (10:05→10:13)
[2020-11-18] MEDS: ceFAZolin Sodium/Dextrose,Iso 2 GM/50 ML PIGGYBACK IV (14:26)
[2020-11-18] MEDS: Acetaminophen 325 MG TABLET 650 MG PO ×2 (16:13→21:36)
[2020-11-18] MEDS: Ketorolac Tromethamine 15 MG/ML VIAL IV ×2 (16:14→22:48)
[2020-11-18] MEDS: ondansetron HCL 4 MG/2 ML VIAL IVPUSH ×2 (16:14→21:36)
--- NOTE | 2020-11-18 17:41 | HO.PM.IMPN ---
Subjective Subjective Date of Service: 11/19/20 Interval History: Patient complaining of right leg pain otherwise denies any symptoms of nausea vomiting no abdominal pain no lightheadedness or dizziness tolerating diet. General no headache, no dizziness, no fever chills. CVS no chest pain, no palpitation. Respiratory no cough no shortness of breath Gastrointestinal no nausea, no vomiting, no abdominal pain Physical Exam Vital Signs: Vital Signs: Last Vital Signs Temp 98.0 F 11/18/20 15:51 Pulse 82 11/18/20 15:51 Resp 18 11/18/20 15:51 BP 109/55 L 11/18/20 15:51 Pulse Ox 98 11/18/20 15:51 Body Mass Index 30.9 General no acute distress. Neck is supple no JVD. CVS regular rate rhythm, Respiratory lungs clear to auscultation, no respiratory distress. Gastrointestinal abdomen soft, nontender, bowel sounds audible. Extremities right extremity Watson wrap in place, left lower extremity no edema Neuro nonfocal . Skin no rash Objective Data Current Medications Generic Name Dose Route Start Last Admin Trade Name Freq PRN Reason Stop Dose Admin Acetaminophen 650 mg 11/17/20 15:50 11/18/20 16:13 Acetaminophen 325 Mg Tablet PO 650 mg Q6H FELIPE Administration Fentanyl 25 mcg 11/18/20 09:43 Fentanyl Citrate/Pf 100 Mcg/2 Ml Vial IVPUSH Q5M PRN Pain, Moderate (Pain Scale 4-6 Fentanyl 50 mcg 11/18/20 09:43 11/18/20 10:13 Fentanyl Citrate/Pf 100 Mcg/2 Ml Vial IVPUSH 50 mcg Q5M PRN Administration Pain, Severe (Pain Scale 7-10) Lactated Ringer's 1,000 mls @ 125 mls/hr 11/17/20 15:50 11/18/20 15:19 Lr IVCONT 125 mls/hr .Q8H FELIPE Administration Ketorolac Tromethamine 15 mg 11/18/20 11:13 11/18/20 16:14 Ketorolac Tromethamine 15 Mg/Ml Vial IV 15 mg Q6H FELIPE Administration Morphine Sulfate 2 mg 11/17/20 15:50 11/17/20 21:30 Morphine Sulfate 2 Mg/Ml Cartridge IVPUSH 2 mg Q2H PRN Administration Pain, Severe (Pain Scale 7-10) Ondansetron HCl 4 mg 11/17/20 16:00 11/18/20 16:14 Ondansetron Hcl 4 Mg/2 Ml Vial IVPUSH 4 mg Q6H FELIPE Administration Ondansetron HCl 4 mg 11/18/20 09:43 Ondansetron Hcl 4 Mg/2 Ml Vial IVPUSH ONCE PRN Nausea and Vomiting Oxycodone HCl 5 mg 11/17/20 15:50 11/18/20 16:14 Oxycodone Hcl Immed Release 5 Mg Tablet PO 5 mg Q6H PRN Administration Pain, Mild (Pain Scale 1-3) Oxycodone HCl 5 mg 11/18/20 09:43 Oxycodone Hcl Immed Release 5 Mg Tablet PO ONCE PRN Pain, Moderate (Pain Scale 4-6 Senna 17.2 mg 11/17/20 21:00 11/18/20 09:03 Sennosides 8.6 Mg Tablet PO Not Given BID FELIPE Sodium Chloride 3 ml 11/17/20 16:00 11/18/20 15:08 0.9 % Sodium Chloride Flush 3 Ml Syringe IVFLUSH Not Given QSHIFT FELIPE Labs CBC & Chem 7: 11/19/20 05:53 11/19/20 05:53 Assessment and Plan (1) Tibia/fibula fracture: Problem details: Ms. Stubbs is a 30 yo female who presented to the ED for right lower extremity pain and inability to WB after sustaining a fall. X-rays in the Ed demonstrated an oblique displaced fracture of the distal shaft of the right tibia and proximal shaft of the right fibula. At that time orthopedics was consulted for further management of her care. Status: Acute (2) Anemia: Status: Acute (3) Leukocytosis: Status: Acute Assessment and Plan: 30-year-old woman admitted to Orthopedic surgery and is status post displaced fractures of the distal shaft of the tibia Oblique Tibial/fibular acute fracture. Status post surgery postoperative day 0, continue pain management as per Orthopedic team , DC IV fluid Leukocytosis. Resolved, UA negative, no symptoms of upper respiratory infection. Normocytic anemia. Will check iron studies, stool guaiac hematocrit dropped from 33-30, No signs of bleeding, no history of heavy periods, patient recently gave and was anemic during , Follow CBC DVT prophylaxis as per surgical team.
[2020-11-18] MEDS: Morphine Sulfate 2 MG/ML CARTRIDGE IVPUSH (20:13)
[2020-11-18] MEDS: 0.9 % Sodium Chloride Flush 3 ML SYRINGE IVFLUSH (20:13)
[2020-11-18] MEDS: Sennosides 8.6 MG TABLET 17.2 MG PO (21:36)
[2020-11-19] MEDS: oxyCODONE HCl Immed Release 5 MG TABLET PO ×2 (03:24→09:03)
[2020-11-19 04:00] VITALS: BP 116/62; PULSE 83; RESP 16; TEMP 37.3; O2SAT 96
[2020-11-19] MEDS: Acetaminophen 325 MG TABLET 650 MG PO (04:47)
[2020-11-19] MEDS: Ketorolac Tromethamine 15 MG/ML VIAL IV (04:48)
[2020-11-19] MEDS: ondansetron HCL 4 MG/2 ML VIAL IVPUSH (04:48)
[2020-11-19 06:01] LABS: MANUAL DIFF FLAG NO
[2020-11-19 06:09] LABS: Basophils Percent Auto 0.1 % (0-2); Eosinophils Absolute Auto 0.1 X10*3/uL (0.0-0.4); Eosinophils Percent Auto 0.9 % (0-4); Hematocrit 26.2 % (37-47); Hemoglobin 8.6 g/dl (12.0-16.0); Imm Gran Abs Auto 0.03 X10*3/uL (0.00-0.03); Imm Gran Pct Auto 0.3 % (0.0-0.4); Lymphocytes Absolute Auto 3.1 X10*3/uL (1.2-4.9); Lymphocytes Percent Auto 28.6 % (20-40); Mean Corpuscular HGB Conc 32.8 g/dl (31.0-35.0); Mean Corpuscular Hemoglobin 27.3 pg (27.0-33.0); Mean Corpuscular Volume 83.2 fL (80-98); Monocytes Absolute Auto 1.1 X10*3/uL (0.1-1.2); Monocytes Percent Auto 10.5 % (2-11); Neutrophils Absolute Auto 6.4 X10*3/uL (2.0-8.3); Neutrophils Percent Auto 59.6 % (45-73); Platelet Count 376 X10*3/uL (160-400); Red Blood Count 3.15 X10*6/uL (4.20-5.50); White Blood Count 10.7 X10*3/uL (4.8-10.8)
[2020-11-19 06:44] LABS: Anion Gap 11 (12-20); Blood Urea Nitrogen 13 mg/dL (9-16); Carbon Dioxide 26 mmol/L (22-29); Chloride 106 mmol/L (96-108); Creatinine Clr Calc Pharmacy 103.1; Estimated Glomerular Filt Rate > 60; Glucose Random 100 mg/dL (60-115); Iron 31 mcg/dL (30-160); Percent Iron Saturation 12 % (15-50); Potassium 3.8 mmol/L (3.3-5.1); Sodium 139 mmol/L (135-145); Total Iron Binding Capacity 256 mcg/dL (228-428); Unsaturated Iron Binding 225 ug/dL
[2020-11-19 07:35] LABS: Ferritin 50 ng/mL (10-122)
[2020-11-19 07:38] VITALS: BP 110/63; PULSE 85; RESP 18; TEMP 36.8; O2SAT 96
[2020-11-19 07:50] VITALS: BP 110/63; PULSE 85; O2SAT 96
--- NOTE | 2020-11-19 07:55 | PM.DS ---
DS: Providers Provider Date of Service: 11/19/20 Date of admission: 11/17/20 12:01 Primary care physician: Unknown Physician Consults: 11/17/20 15:50 Consult to Hospitalist Routine Consulting Provider: Hospitalist DS: Diagnosis Discharge Diagnosis (1) Tibia/fibula fracture: Status: Acute Problem details: Ms. Stubbs is a 30 yo female who presented to the ED for right lower extremity pain and inability to WB after sustaining a fall. X-rays in the Ed demonstrated an oblique displaced fracture of the distal shaft of the right tibia and proximal shaft of the right fibula. At that time orthopedics was consulted for further management of her care. (2) Anemia: Status: Acute (3) Leukocytosis: Status: Acute DS: Medications Discharge Medications Home Medications: Previous Rx's Medication Instructions Recorded acetaminophen 650 mg PO Q6H 30 Days #240 tab 11/19/20 oxycodone 5 mg PO Q6H PRN 7 Days #28 tab 11/19/20 sennosides [Senna Lax] 17.2 mg PO BID 30 Days #120 tab 11/19/20 DS: Summary Hospital Course Hospital Course: The patient underwent a successful right tibial IM nail, they were transferred to PACU and then to the floor to recover. During their stay, their vitals were stable, afebrile at 98.2. Labs were unremarkable, H/H 8.6/26.2. POD 1 she received Physical Therapy services. Prior to discharge, their dressing was changed, incision clean dry and intact, new dressing applied and the plan was to be discharged home. Time Spent with Patient Time attestation: Total time spent providing and/or coordinating discharge services: Discharge coordination time: Less than 30 minutes Physical Exam Vital Signs: Vital Signs: Last Vital Signs Temp 98.2 F 11/19/20 07:38 Pulse 85 11/19/20 07:50 Resp 18 11/19/20 07:38 BP 110/63 11/19/20 07:50 Pulse Ox 96 11/19/20 07:50 Body Mass Index 30.9 Const: General: cooperative, healthy appearing and no acute distress Resp: Effort & Inspection: normal respiratory effort and able to speak in complete sentences Cardio: Rate: regular rate Peripheral pulses: Peripheral pulses 2+ throughout GI: Palpation (GI): Soft to palpation Skin: Lesions: no lesions Rashes: no rashes Extrem: Other: Right lower extremity no ecchymosis, redness, or drainage. Incision sites are well approximated and intact, tia intact. Sensation intact. Pedal pulse intact. Calf is supple and nontender. DS: Data Data Completed and Pending Labs on day of discharge: Laboratory Tests 11/17/20 11/17/20 11/17/20 10:29 10:29 10:29 WBC 17.1 H RBC 4.19 L Hgb 11.4 L Hct 35.2 L MCV 84.0 MCH 27.2 MCHC 32.4 RDW 14.1 Plt Count 472 H MPV 10.0 Immature Gran % (Auto) 0.5 H Neut % (Auto) 80.4 H Lymph % (Auto) 12.0 L [place] % (Auto) 6.1 Eos % (Auto) 0.6 Baso % (Auto) 0.4 Lymph # (Auto) 2.0 [place] # (Auto) 1.0 Eos # (Auto) 0.1 Baso # (Auto) 0.1 Abs Immat Gran (auto) 0.08 H Absolute Neuts (auto) 13.7 H Absolute Nucleated RBC 0.000 Nucleated RBC % (auto) 0.0 PT 12.9 INR 1.1 APTT 43.5 H Sodium 140 Potassium 4.6 Chloride 108 Carbon Dioxide 25 Anion Gap 12 BUN 12 Creatinine 0.84 Estim Creat Clear Calc 95.6 Estimated GFR > 60 Random Glucose 109 Calcium 9.0 Iron TIBC % Saturation Unsat Iron Binding Ferritin Total Bilirubin < 0.2 AST 14 ALT 10 Alkaline Phosphatase 100 Total Protein 6.9 Albumin 4.2 Beta HCG, Quant < 2 Urine Color Urine Appearance Urine pH Ur Specific [place] Urine Protein Urine Glucose (UA) Urine Ketones Urine Blood Urine Nitrite Ur Leukocyte Esterase Urine RBC Urine WBC Ur Squamous Epith Cells Urine Bacteria Urine Mucus COVID-19 ([facility]) COVID-19 Clin Com Blood Type Antibody Screen 11/17/20 11/17/20 11/17/20 10:53 16:59 17:00 WBC RBC Hgb Hct MCV MCH MCHC RDW Plt Count MPV Immature Gran % (Auto) Neut % (Auto) Lymph % (Auto) [place] % (Auto) Eos % (Auto) Baso % (Auto) Lymph # (Auto) [place] # (Auto) Eos # (Auto) Baso # (Auto) Abs Immat Gran (auto) Absolute Neuts (auto) Absolute Nucleated RBC Nucleated RBC % (auto) PT INR APTT Sodium 141 Potassium 4.7 Chloride 109 H Carbon Dioxide 25 Anion Gap 12 BUN 10 Creatinine 0.82 Estim Creat Clear Calc 97.9 Estimated GFR > 60 Random Glucose 95 Calcium 8.7 Iron TIBC % Saturation Unsat Iron Binding Ferritin Total Bilirubin AST ALT Alkaline Phosphatase Total Protein Albumin Beta HCG, Quant Urine Color YELLOW Urine Appearance CLEAR Urine pH 6.0 Ur Specific [place] 1.015 Urine Protein NEG Urine Glucose (UA) NEG Urine Ketones NEG Urine Blood NEG Urine Nitrite NEG Ur Leukocyte Esterase NEG Urine RBC 0-2 Urine WBC 0-2 Ur Squamous Epith Cells 1+ Urine Bacteria NONE Urine Mucus TRACE COVID-19 ([facility]IN) Negative COVID-19 Clin Com See Note Blood Type Antibody Screen 11/17/20 11/17/20 11/18/20 17:00 17:00 05:50 WBC 13.5 H 8.5 RBC 3.97 L 3.69 L Hgb 10.7 L 9.8 L Hct 33.0 L 30.7 L MCV 83.1 83.2 MCH 27.0 26.6 L MCHC 32.4 31.9 RDW 13.8 13.7 Plt Count 482 H 419 H MPV 10.1 10.2 Immature Gran % (Auto) 0.3 0.2 Neut % (Auto) 76.1 H 59.8 Lymph % (Auto) 16.6 L 27.7 [place] % (Auto) 6.4 9.9 Eos % (Auto) 0.4 2.2 Baso % (Auto) 0.2 0.2 Lymph # (Auto) 2.2 2.4 [place] # (Auto) 0.9 0.8 Eos # (Auto) 0.1 0.2 Baso # (Auto) 0.0 0.0 Abs Immat Gran (auto) 0.04 H 0.02 Absolute Neuts (auto) 10.3 H 5.1 Absolute Nucleated RBC 0.000 0.000 Nucleated RBC % (auto) 0.0 0.0 PT INR APTT Sodium Potassium Chloride Carbon Dioxide Anion Gap BUN Creatinine Estim Creat Clear Calc Estimated GFR Random Glucose Calcium Iron TIBC % Saturation Unsat Iron Binding Ferritin Total Bilirubin AST ALT Alkaline Phosphatase Total Protein Albumin Beta HCG, Quant Urine Color Urine Appearance Urine pH Ur Specific [place] Urine Protein Urine Glucose (UA) Urine Ketones Urine Blood Urine Nitrite Ur Leukocyte Esterase Urine RBC Urine WBC Ur Squamous Epith Cells Urine Bacteria Urine Mucus COVID-19 ([facility]IN) COVID-19 Clin Com Blood Type O Positive Antibody Screen NEGATIVE 11/19/20 11/19/20 11/19/20 05:53 05:53 05:53 WBC 10.7 RBC 3.15 L Hgb 8.6 L Hct 26.2 L MCV 83.2 MCH 27.3 MCHC 32.8 RDW 14.0 Plt Count 376 MPV 10.0 Immature Gran % (Auto) 0.3 Neut % (Auto) 59.6 Lymph % (Auto) 28.6 [place] % (Auto) 10.5 Eos % (Auto) 0.9 Baso % (Auto) 0.1 Lymph # (Auto) 3.1 [place] # (Auto) 1.1 Eos # (Auto) 0.1 Baso # (Auto) 0.0 Abs Immat Gran (auto) 0.03 Absolute Neuts (auto) 6.4 Absolute Nucleated RBC 0.000 Nucleated RBC % (auto) 0.0 PT INR APTT Sodium 139 Potassium 3.8 Chloride 106 Carbon Dioxide 26 Anion Gap 11 L BUN 13 Creatinine 0.78 Estim Creat Clear Calc 103.1 Estimated GFR > 60 Random Glucose 100 Calcium 8.0 L D Iron 31 TIBC 256 % Saturation 12 L Unsat Iron Binding 225 Ferritin 50 Total Bilirubin AST ALT Alkaline Phosphatase Total Protein Albumin Beta HCG, Quant Urine Color Urine Appearance Urine pH Ur Specific [place] Urine Protein Urine Glucose (UA) Urine Ketones Urine Blood Urine Nitrite Ur Leukocyte Esterase Urine RBC Urine WBC Ur Squamous Epith Cells Urine Bacteria Urine Mucus COVID-19 ([facility]) COVID-19 Clin Com Blood Type Antibody Screen Discharge Plan Discharge Patient Disposition: Home, Self-Care Referrals: Lillie Nesbitt PA-C [Physician Level Vial Setter] - (2 week f/u ) Discharge Medications: New sennosides [Senna Lax] 8.6 mg Tablet 17.2 mg PO BID 30 Days Qty: 120 RF: 0 acetaminophen 325 mg Tablet 650 mg PO Q6H 30 Days Qty: 240 RF: 0 oxycodone 5 mg Tablet 5 mg PO Q6H PRN (Reason: Pain, Mild (Pain Scale 1-3)) 7 Days Qty: 28 RF: 0 Discontinued ibuprofen 600 mg Tablet 600 mg PO Q6H PRN (Reason: Pain (Scale Score 1-3)) RF: 0 Discharge Orders: Discharge Order (Routine); Ordered 11/19/20 Ordered By: Lillie Nesbitt Diet: regular diet Activity on Discharge: Use cane or walker Stand Alone Forms: Patient Portal Discharge page Activity Restrictions/Additional Instructions: NWB x6 weeks NWB ROM as tolerated beginning 2 weeks post op Dressing changes as needed No tub bath or shower-Keep dressing clean, dry and intact Follow up with orthopedics in 2 weeks Visit Report Forms: Patient Portal Discharge page Care Plan Goals: Restore function of right leg Health Concerns: none Plan of Treatment: Physical Therapy Pain management DVT prophylaxis
--- NOTE | 2020-11-19 08:08 | MHC.CM.PN ---
PATIENT IS DISCHARGED HOME WITH NO SERVICE NEEDS. RN AWARE OF PLAN. PATIENT IS FUNCTIONALLY INDEPENDEN WITH ADLS. SHE DOES HAVE A WALKER AT HOME. FAMILY TO TRANSPORT HOME.
[2020-11-19] MEDS: Sennosides 8.6 MG TABLET 17.2 MG PO (09:03)
[2020-11-19] MEDS: 0.9 % Sodium Chloride Flush 3 ML SYRINGE IVFLUSH (09:11)
--- NOTE | 2020-11-19 09:26 | HO.POSTANES ---
Post Anesthesia Evaluation Post Anesthesia Evaluation Vital Signs: Vital Signs Temp Pulse Resp BP Pulse Ox 11/19/20 07:50 85 110/63 96 11/19/20 07:38 98.2 F 85 18 110/63 96 11/19/20 04:00 99.2 F 83 16 116/62 96 11/18/20 23:28 99.1 F 72 16 119/63 96 Anesthesia: General Mental Status: Awake Pain Control: Satisfactory Nausea/Vomiting: None Hydration: Adequate Anesthesia-Related Issues: No Anes. Related Issues
--- NOTE | 2020-11-19 10:29 | PC.NURSE ---
PT SEEN BY NATHALY AND DR MONTANA. DR MONTANA SPOKE WITH HER REGARDING CONTINUING TO TAKE IRON BID AT HOME ALONG WITH VITAMIN C. PT DCD HOME
--- NOTE | 2020-11-19 13:50 | P.PNIM_ITS ---
Subjective Subjective Date of Service: 11/19/20 Interval History: Patient resting comfortably, is ready to be discharged home, denies lightheadedness dizziness no chest pain no palpitation was previously taking a heparin due to anemia, denies any GI blood loss denies heavy periods. General no headache, no dizziness, no fever chills. CVS no chest pain, no palpitation. Respiratory no cough no shortness of breath Gastrointestinal no nausea, no vomiting, no abdominal pain Physical Exam Vital Signs: Vital Signs: Last Vital Signs Temp 98.2 F 11/19/20 07:38 Pulse 85 11/19/20 07:50 Resp 18 11/19/20 07:38 BP 110/63 11/19/20 07:50 Pulse Ox 96 11/19/20 07:50 Body Mass Index 30.9 General no acute distress. Neck is supple no JVD. CVS regular rate rhythm, Respiratory lungs clear to auscultation, no respiratory distress. Gastrointestinal abdomen soft, nontender, bowel sounds audible. Extremities right extremity swelling, no redness, to areas of bandages in place, left lower extremity no edema Neuro nonfocal . Skin no rash Objective Data Labs CBC & Chem 7: 11/19/20 05:53 11/19/20 05:53 Assessment and Plan (1) Anemia: Status: Acute (2) Leukocytosis: Status: Acute (3) Tibia/fibula fracture: Problem details: Ms. Stubbs is a 30 yo female who presented to the ED for right lower extremity pain and inability to WB after sustaining a fall. X-rays in the Ed demonstrated an oblique displaced fracture of the distal shaft of the right tibia and proximal shaft of the right fibula. At that time orthopedics was consulted for further management of her care. Status: Acute Assessment and Plan: 30-year-old woman admitted to Orthopedic surgery and is status post displaced fractures of the distal shaft of the tibia Oblique Tibial/fibular acute fracture. Status post surgery postoperative day 1, good pain control being discharged home Leukocytosis. Resolved, UA negative, no symptoms of upper respiratory i nfection. Normocytic anemia. Iron studies revealed low iron saturation of 12, hematocrit dropped from 33-30 to 26, No signs of bleeding, no history of heavy periods, patient recently gave and was anemic during , and has a prescription of iron, advised patient to take iron twice daily with vitamin-C and take iron rich foods including spinach apple, and what about, and Follow CBC as outpatient Since patient is completely asymptomatic , does not require blood transfusion. DVT prophylaxis as per surgical team.
--- NOTE | 2020-11-26 09:33 | P.OP_ITS ---
Operative Note Operative Note Date of Service: 11/18/20 Narrative: OPERATIVE PROCEDURE NOTE SURGEON: Dr. Medina ([place]) Instrum INDIVIDUAL PENSION ADVISER: Lillie Nesbitt PAC PREOP DIAGNOSIS: {right distal 3rd tibial/fibula fracture } POSTOP DIAGNOSIS: {same } OPERATIVE PROCEDURE: {operative fixation right tibia with locked intramedullary nailing } CLINICAL NOTE: {this very pleasant lady fell and injured her leg. She presented to the emergency department. She subsequently was found to have the above noted injury. After explaining the risks benefits and alternatives and answering all her questions it was mutually agreed upon to carry out the following procedure } OPERATIVE PROCEDURE { under a general anesthetic the patient was placed supine on the operating tabl e. Pneumatic tourniquet cuff was placed around the upper thigh and inflated to 300 mm of mercury beginning of the case. The leg was checked on AP and lateral fluoroscopy. Was spiral distal 3rd fracture which could be reduced virtually anatomically. The leg was then prepped and draped in standard fashion. Surgical time-out was then performed patient's identified procedure confirmed site confirmed medical now G history reviewed preoperative antibiotics were given standard DVT prophylaxis in place all other items were discussed and agreed upon. Standard midline incision from the tip of the patella to the tibial tubercle was made. 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 The patellar tendon was identified. It was split longitudinally along the midline from the tip of the patella to the tibial tubercle. It was divided and carefully protected. This brought us to the proximal aspect of tibia. A guidewire worse inserted. The position was checked on fluoroscopy. He was found to be in excellent position. The proximal guide was used in order to anterior the proximal intramedullary canal. The guidewire was then inserted and was passed through the tibia to the level of the fracture where under fluoroscopic guidance it was easily passed to the distal segment in excellent position. It was then measured. It measured to a 345 mm length. The guidewire was at the growth scar. Therefore it was elected to use a 330 mm by 9 mm nail. This was brought up onto the table. The canal was then reamed in order to have 10.5 mm Reamer passed. This was done under fluoroscopic guidance. Following this the nail was assembled on the guide and then passed over the guidewire. Under fluoroscopic guidance it was passed down the tibial tunnel across the fracture site. The guidewire was then removed. The wire was inserted into an excellent position and down to the level of the gross scar. The length and position was checked on fluoroscopy both in AP lateral plane in everything looked to be appropriate. Turning our attention to the proximal lock we selected the over week medial hole. Through the guide and under standard technique he was drilled measured in the appropriate length screw inserted. The proximal guide was then removed. End cap was inserted. We then turned turned our attention to the distal locking. Under fluoroscopic guidance the 2 most distal medial to lateral holes were identified. Stab incisions were made under fluoroscopic guidance they were drilled measured in the appropriate length screws inserted. At this point final imaging was undertaken. This demonstrated the fracture reduced anatomically. The hardware all in good position. And no other concerns. We therefore proceeded to closure. The proximal wound was irrigated. The patellar tendon was closed with number 0 Dexon. All the incisions were then approximated using 2-of 0 Polysorb. The incisions were closed with tia. Sterile dressings were then applied. The tourniquet was let down total tourniquet time of 58 minutes. Intraoperatively there was approximately 50 cc blood loss no complications}
== END 2020-11-19 10:29 | disposition home or self-care (01) | DRG 950 ==
LOC: HO.ED 10:51 → HO.EDOVER 12:23 → HO.S3 12:25 → HO.EDOVER 12:28 → HO.S3 19:10
PROVIDERS: Hospitalist; Nurse Practitioner Primary Care; Physician Assistant; Admitting Provider Orthopaedic Surgery; Emergency Provider Emergency Medicine; Visit Provider Orthopaedic Surgery
PROC: 0QSG06Z Reposition Right Tibia with Intramedullary Internal Fixation Device, Open Approach (ICD-10-PCS; CPT 27827; principal; 2020-11-18 07:30)
DX: O9A.23 Injury, poisoning and certain other consequences of external causes complicating the puerperium (principal); S82.231A Displaced oblique fracture of shaft of right tibia, initial encounter for closed fracture; S82.491A Other fracture of shaft of right fibula, initial encounter for closed fracture; Z20.822 Contact with and (suspected) exposure to COVID-19; D72.829 Elevated white blood cell count, unspecified; D64.9 Anemia, unspecified; O99.13 Other diseases of the blood and blood-forming organs and certain disorders involving the immune mechanism complicating the puerperium; W00.0XXA Fall on same level due to ice and snow, initial encounter; O90.81 Anemia of the puerperium; Y93.9 Activity, unspecified; Y92.9 Unspecified place or not applicable; Y99.9 Unspecified external cause status
CPT/HCPCS: 27827; 36415; 73590; 73620; 80048; 80053; 81001; 82728; 83540; 84702; 85025; 85610; 85730; 86850; 86900; 86901; 87635; 96361; 96374; 97116; 97161; 97530; 99285; C1713; C1769; J0690; J1100; J1170; J1885; J2250; J2270; J2405; J3010

== ENCOUNTER → 2020-11-30 12:53 | Outpatient (BNVA) | payer MEDICAID, SELFPAY | PROVIDERS: Visit Provider Physician Assistant | DX: Z13.89 Encounter for screening for other disorder (principal) | CPT/HCPCS: 99212 ==

== ENCOUNTER 2020-12-28 07:50 | Outpatient (REF) | payer MEDICAID, SELFPAY ==
--- NOTE | ~2020-12-28 | XR_ITS ---
EXAMINATION: XR TIBIA AND FIBULA, RIGHT CLINICAL INFORMATION: Fracture shaft tibia. COMPARISON: Right tibia and fibula 11/17/2020 TECHNIQUE: AP and lateral views of the right tibia and fibula were obtained. FINDINGS: The oblique displaced distal tibial fracture has been stabilized with intramedullary nerissa and proximal nail and 2 distal nails in satisfactory alignment. Also visualized and oblique fracture proximal fibula, unchanged. XR/XR tibia fibula RT 2V IMPRESSION: Stabilized distal tibial fracture with intramedullary femoral nerissa and screws. Proximal fibular fracture is unchanged to previous study.
--- NOTE | ~2020-12-28 | XR_ITS ---
EXAMINATION: XR TIBIA AND FIBULA, RIGHT CLINICAL INFORMATION: Fracture COMPARISON: 12/28/2020 TECHNIQUE: AP and lateral views of the right tibia and fibula were obtained. FINDINGS: Intramedullary nerissa in the tibia across the fracture line. Hardware remain in place properly positioned. Bone alignments maintained. Mildly displaced oblique fracture through the proximal fibula fibular neck unchanged. Remains stable. XR/XR tibia fibula RT 2V IMPRESSION: Stable hardware ORIF tibia Stable mildly displaced proximal fibular fracture.
== END 2020-12-28 07:51 | disposition home or self-care (01) ==
LOC: HO.HOSX 07:50
PROVIDERS: Visit Provider Physician Assistant
DX: S82.301D Unspecified fracture of lower end of right tibia, subsequent encounter for closed fracture with routine healing (principal); S82.431D Displaced oblique fracture of shaft of right fibula, subsequent encounter for closed fracture with routine healing
CPT/HCPCS: 73590; 99212

== ENCOUNTER → 2021-01-18 13:45 | Outpatient (BNVA) | payer MEDICAID, SELFPAY | PROVIDERS: Visit Provider Physician Assistant | DX: S82.209D Unspecified fracture of shaft of unspecified tibia, subsequent encounter for closed fracture with routine healing (principal); S82.409D Unspecified fracture of shaft of unspecified fibula, subsequent encounter for closed fracture with routine healing | CPT/HCPCS: 73590; 99212 ==

== ENCOUNTER 2021-03-08 09:58 | Outpatient (REF) | payer MEDICAID, SELFPAY ==
--- NOTE | ~2021-03-08 | XR_ITS ---
EXAMINATION: XR TIBIA AND FIBULA, RIGHT CLINICAL INFORMATION: Fracture. COMPARISON: Multiple priors, most recent tibia and fibular radiographs dated 01/18/2021. TECHNIQUE: AP and lateral views of the right tibia and fibula were obtained. FINDINGS: Redemonstration of a tibial intramedullary nerissa with proximal and distal fixation screws. No acute hardware fracture. No perihardware lucency to suggest loosening or infection. Redemonstration of an oblique fracture through the distal tibial diaphysis in unchanged anatomic alignment. No significant interval new bone/callus formation. Redemonstration of an oblique fracture through the proximal fibular diaphysis in unchanged anatomic alignment with minimal interval new bone/callus formation. XR/XR tibia fibula RT 2V IMPRESSION: Tibial intramedullary nerissa across a distal tibial fracture in unchanged anatomic alignment. Proximal fibular fracture in unchanged anatomic alignment with minimal new bone/callus formation.
== END 2021-03-08 09:59 | disposition home or self-care (01) ==
LOC: HO.HOSX 09:58
PROVIDERS: Visit Provider Physician Assistant
DX: S82.201A Unspecified fracture of shaft of right tibia, initial encounter for closed fracture (principal); S82.401A Unspecified fracture of shaft of right fibula, initial encounter for closed fracture; X58.XXXA Exposure to other specified factors, initial encounter; Y93.9 Activity, unspecified; Y92.9 Unspecified place or not applicable; Y99.8 Other external cause status
CPT/HCPCS: 73590; 99212

== ENCOUNTER → 2021-04-12 12:55 | Outpatient (BNVA) | payer MEDICAID, SELFPAY | PROVIDERS: Visit Provider Physician Assistant | DX: S82.209A Unspecified fracture of shaft of unspecified tibia, initial encounter for closed fracture (principal); S82.409A Unspecified fracture of shaft of unspecified fibula, initial encounter for closed fracture | CPT/HCPCS: 99212 ==

== ENCOUNTER 2021-04-26 14:00 | Outpatient (RCR) | payer MEDICAID, SELFPAY ==
--- NOTE | 2021-01-26 15:07 | MHC.PT.EP ---
[facility] [place] Office [place] Office [place] Office [address] Rudolph Estrada [address] [phone] F: [phone] F: [phone] F: [phone] F: [phone] Physical Therapy Plan of Care Date of Evaluation: 01/26/21 Date of Surgery: 11/18/20 Diagnosis: Unspecified Fracture of Shaft of Unspecified Tibia, Initial Encounter Unspecified Fracture of Shaft of Unspecified Fibula, Initial Encounter S/P IM Nail Tibia Tibia/Fibula Fracture Assessment: Samantha is a 30-year-old female presenting to physical therapy following a R tibial IM nail placement. She presents with deficits B LE strength, R ankle ROM, impaired posture and impaired gait. 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 Samantha is motivated to participate in physical therapy in order to reduce her pain, improve her function, and return to her PLOF. Frequency and Duration: The patient will be seen 2 Visits per week for 8 weeks Short Term Goals: -Pt will report <2/10 pain at rest with her leg in a dependent position within 4 weeks. -Pt will be able to ambulate with proper gait mechanics and without use of an AD within 4 weeks. 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 -Pt will be able to negotiate 12 stairs as needed for community ambulation within 8 weeks. -Pt will be able to play with her children for >1 hour without pain within 8 weeks. Treatment Plan: Modalities to reduce pain, spasms and effusion. Manual therapy to restore motion and function. Therapeutic exercise to improve strength and flexibility. Neuromuscular re-education for posture and balance. Therapeutic activities to return to functional activities of daily living. Electronically signed by: Monika Denson, PT, DPT Please sign and return to therapist. Thank you for your referral.
--- NOTE | 2021-06-08 15:38 | MHC.PT.DC ---
[facility] [place] Office [place] Office [place] Office [address] Estrada [address] [phone] F: [phone] F: [phone] F: [phone] F: [phone] Physical Therapy Discharge Report Diagnosis: Unspecified Fracture of Shaft of Unspecified Tibia, Initial Encounter Unspecified Fracture of Shaft of Unspecified Fibula, Initial Encounter S/P IM Nail Tibia Tibia/Fibula Fracture Date of Surgery: 11/18/20 Date of Evaluation: 01/26/21 Date of Discharge: 05/03/21 Treatments to Date: 15 Cancellations to Date: 0 No Shows to Date: 0 Discharge Status: Achieved Goals Improved Function Independent with HEP Discharge Summary: Pt susana increased dynamic activities w/o GT deviation and no c/o of increased px. Electronically signed by: Monika Denson PT DPT Please sign and return to therapist. Thank you for your referral.
== END 2021-06-08 15:38 | disposition home or self-care (01) ==
LOC: HO.PT 14:00
PROVIDERS: Visit Provider Physician Assistant
DX: S82.209A Unspecified fracture of shaft of unspecified tibia, initial encounter for closed fracture (principal); S82.409A Unspecified fracture of shaft of unspecified fibula, initial encounter for closed fracture
CPT/HCPCS: 97110; 97112; 97116; 97161; 97530

== ENCOUNTER 2022-02-24 07:22 | Outpatient (REF) | payer MEDICAID, SELFPAY ==
--- NOTE | ~2022-02-24 | XR_ITS ---
EXAMINATION: XR TIBIA AND FIBULA, RIGHT CLINICAL INFORMATION: Follow up fracture distal tibia. COMPARISON: Right tibia and fibula 03/08/2021. TECHNIQUE: AP and lateral views of the right tibia and fibula were obtained. FINDINGS: Slowly healing oblique distal tibial fracture with intramedullary femoral nerissa and nails in place. The fracture line is still visualized. Previously visualized proximal fibular fracture appears healed. No new fracture seen. XR/XR tibia fibula RT 2V IMPRESSION: Oblique partially healed fracture distal tibia with intramedullary femoral nerissa and proximal and distal screws. There is healed proximal fibular fracture.
== END 2022-02-24 07:23 | disposition home or self-care (01) ==
LOC: HO.HOSX 07:22
PROVIDERS: Visit Provider Orthopaedic Surgery
DX: S82.201D Unspecified fracture of shaft of right tibia, subsequent encounter for closed fracture with routine healing (principal); S82.401D Unspecified fracture of shaft of right fibula, subsequent encounter for closed fracture with routine healing; X58.XXXD Exposure to other specified factors, subsequent encounter; Z96.9 Presence of functional implant, unspecified
CPT/HCPCS: 73590; 99212

== ENCOUNTER 2024-02-22 09:47 | Outpatient (REF) | payer MEDICAID, SELFPAY ==
--- NOTE | 2024-02-22 | EMG_ITS ---
Chief complaint: S/P right tibial IM nail, DOS: 11/17/20; started having numbness on right lateral knee and toes around 1 month after surgery. Reason for referral: Evaluate for peroneal neuropathy Referred by: Dr. Shelbie Honeycutt Procedure done: Right lower extremity NCS/EMG Precautions and/or limitations: None The limb temperature was monitored continuously and remained between 32-36 degrees C during the performance of the NCS. Nerve Conduction Studies Anti Sensory Summary Table ?Stim Site NR Onset (ms) Norm Onset (ms) Peak (ms) Norm Peak (ms) O-P Amp (?V) Norm O-P Amp Site1 Site2 Delta-0 (ms) Dist (cm) Reuben (m/s) Norm Reuben (m/s) Right Sural Anti Sensory (Lat Mall) Calf ? 1.2 3.4 <4.0 17.0 >5.0 Calf Lat Mall 1.2 14.0 117 Motor Summary Table ?Stim Site NR Onset (ms) Norm Onset (ms) O-P Amp (mV) Norm O-P Amp iAmp (mV) Amp (1st) (%) Site1 Site2 Delta-0 (ms) Dist (cm) Reuben (m/s) Norm Reuben (m/s) Right Peroneal Motor (Ext Dig Brev) Ankle ? 3.6 <4.0 2.7 >2.5 3.3 100.0 Ankle Ext Dig Brev 3.6 35.0 97 B Fib ? 10.2 3.9 4.7 144.4 B Fib Ankle 6.6 35.0 53 >40 Poplt ? 10.6 5.2 6.9 192.6 Poplt B Fib 0.4 4.0 100 >40 Right Peroneal TA Motor (Tib Ant) Fib Head ? 3.0 <4.2 2.3 2.7 100.0 Fib Head Tib Ant 3.0 0.0 Poplit ? 4.1 <5.7 1.5 2.6 65.2 Poplit Fib Head 1.1 4.0 36 >40.5 Right Tibial Motor (Abd Falk Brev) Ankle ? 3.4 <5 15.0 >2.5 18.4 100.0 Ankle Abd Falk Brev 3.4 0.0 Knee ? 10.2 12.1 14.6 80.7 Knee Ankle 6.8 37.0 54 >40 EMG ?Side Muscle Nerve Root Ins Act Fibs Psw Amp Dur Poly Recrt Int Pat Comment Right AbdHallucis MedPlantar S1-2 Nml Nml Nml Nml Nml 0 Nml Complete Right AntTibialis Dp Br Peron L4-5 Nml Nml Nml Nml Nml 0 Nml Complete Right PostTibialis Tibial L5, S1 Nml Nml Nml Nml Nml 0 Nml Complete Right MedGastroc Tibial S1-2 Nml Nml Nml Nml Nml 0 Nml Complete Right VastusMed Femoral L2-4 Nml Nml Nml Nml Nml 0 Nml Complete Right Peroneus Long Sup Br Peron L5-S1 Nml Nml Nml Nml Nml 0 Nml Complete Paraspinal EMG ?Side Muscle Nerve Root Ins Act Fibs Psw Comment Right Lumbar Upper Rami Nml Nml Nml Right Lumbar Mid Rami Nml Nml Nml Right Lumbar Lower Rami Nml Nml Nml FINDINGS: Right peroneal nerve, recording at TA muscle, showed small amplitudes and slow conduction velocity across fibular neck. All other nerves tested were within normal. Concentric needle EMG was performed in selected muscles of the right lower extremity and lumbar paraspinals. Study did not reveal signs of electric abnormalities as shown in the table below. IMPRESSION: 1. This is an abnormal study. 2. 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 3. There is no electrodiagnostic evidence for tibial neuropathy, lumbosacral plexopathy, lumbar radiculopathy, or peripheral neuropathy. Thank you for your kind referral. Talisha Bolaños MD, BECKI Board Certified, [place] [employer] and [employer] (ABPMR) Board Certified, [place] [employer] Electrodiagnostic [employer] (ABEM) [facility] [id number] [facility]
== END 2024-02-22 09:48 | disposition home or self-care (01) ==
LOC: HO.NEURO 09:47
PROVIDERS: PCP Student in an Organized Health Care Education/Training Program; Visit Provider Student in an Organized Health Care Education/Training Program
DX: M79.604 Pain in right leg (principal)
CPT/HCPCS: 95886; 95908

== ENCOUNTER → 2024-02-22 09:55 | Outpatient (BNV) | payer MEDICAID, SELFPAY | PROVIDERS: PCP Student in an Organized Health Care Education/Training Program; Visit Provider Physical Medicine & Rehabilitation | DX: S84.11XA Injury of peroneal nerve at lower leg level, right leg, initial encounter (principal) | CPT/HCPCS: 95886; 95908 ==

== ENCOUNTER 2024-03-06 10:38 | Outpatient (REF) | payer MEDICAID, SELFPAY ==
--- NOTE | ~2024-03-06 | XR_ITS ---
EXAMINATION: Right knee series. Right tibia-fibula series. CLINICAL INFORMATION: Right leg and knee pain. Patient reports fracture 2020. COMPARISON: Multiple prior x-rays most recent right tibia-fibula February 2022 and dating back to 2020. Right knee x-ray July 2019 TECHNIQUE: 4 views of the right knee. 2 views of the right tibia-fibula FINDINGS: Right tibia-fibula: Postop changes with the tibial nerissa and interlocking screws noted. Hardware is intact and unchanged. There is some focal lucency surrounding the distal end of the proximal screw as well as within the proximal fibula. This lucency suggests some osteolysis and perhaps some chronic impaction on the proximal fibula through the proximal tibiofibular joint. This is unchanged compared with the 2021 exam but new compared with the 2020 exam. No additional lucency surrounding the hardware. The alignment is unchanged the distal tibial fracture. 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 Fibula is otherwise unremarkable. Right knee: Postop changes as above. Bone and joints of the knee are otherwise unremarkable without effusion. XR/XR tibia fibula RT 2V IMPRESSION: 1. Postop changes related to ORIF of the distal tibial fracture. 2. There is some lucency surrounding the distal end of the proximal screw as well as within the proximal fibula. This is unchanged compared with the 2021 exam but new compared with the 2020 exam. 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 The alignment is unchanged. 4. Knee joint otherwise unremarkable
--- NOTE | ~2024-03-06 | XR_ITS ---
EXAMINATION: Right knee series. Right tibia-fibula series. CLINICAL INFORMATION: Right leg and knee pain. Patient reports fracture 2020. COMPARISON: Multiple prior x-rays most recent right tibia-fibula February 2022 and dating back to 2020. Right knee x-ray July 2019 TECHNIQUE: 4 views of the right knee. 2 views of the right tibia-fibula FINDINGS: Right tibia-fibula: Postop changes with the tibial nerissa and interlocking screws noted. Hardware is intact and unchanged. There is some focal lucency surrounding the distal end of the proximal screw as well as within the proximal fibula. This lucency suggests some osteolysis and perhaps some chronic impaction on the proximal fibula through the proximal tibiofibular joint. This is unchanged compared with the 2021 exam but new compared with the 2020 exam. No additional lucency surrounding the hardware. The alignment is unchanged the distal tibial fracture. 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 Fibula is otherwise unremarkable. Right knee: Postop changes as above. Bone and joints of the knee are otherwise unremarkable without effusion. XR/XR knee RT 3V IMPRESSION: 1. Postop changes related to ORIF of the distal tibial fracture. 2. There is some lucency surrounding the distal end of the proximal screw as well as within the proximal fibula. This is unchanged compared with the 2021 exam but new compared with the 2020 exam. 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 The alignment is unchanged. 4. Knee joint otherwise unremarkable
[2024-03-06 11:40] LABS: Hematocrit 40.3 % (37.0-47.0); Hemoglobin 13.1 g/dl (12.0-16.0); Mean Corpuscular HGB Conc 32.5 g/dl (31.0-35.0); Mean Corpuscular Volume 82.9 fL (80.0-98.0); Mean Platelet Volume 10.8 fL (9.4-12.3); Platelet Count 335 X10*3/uL (160-400); Red Blood Count 4.86 X10*6/uL (4.20-5.50); Red Cell Distribution Width 13.2 % (11.0-16.0); White Blood Count 6.3 X10*3/uL (4.8-10.8)
[2024-03-06 12:04] LABS: Estimated Average Glucose 108 mg/dL; Hemoglobin A1c % 5.4 % (<6.0)
[2024-03-06 12:26] LABS: HBS Num1 1.34 mIU/mL (0-7.99); HBc Num1 0.14 S/CO (0.00-0.79); HBsAGNum1 0.33 S/CO (0.00-0.99); HIV AB/AG Nonreactive (Nonreactive); HIV Num 1 0.04 S/CO (0.00-0.99); Hepatitis B Core Antibody Nonreactive (Nonreactive); Hepatitis B Surface Antigen Negative (Negative); ~HepC Num1 0.09 S/CO (0.00-0.79); ~Hepatitis B Surface Antibody NONREACTIVE (Nonreactive); ~Hepatitis C Antibody Nonreactive (Nonreactive)
[2024-03-06 12:30] LABS: Syphilis Screen Nonreactive (Nonreactive)
[2024-03-06 12:36] LABS: Alanine Aminotransferase 8 U/L (0-31); Albumin Level 4.5 g/dL (3.5-5.0); Alkaline Phosphatase 87 U/L (39-117); Anion Gap 11 (12-20); Aspartate Amino Transferase 12 U/L (5-31); Bilirubin Total 0.2 mg/dL (0.0-1.0); Blood Urea Nitrogen 11 mg/dL (9-16); Calcium 9.6 mg/dL (8.4-10.2); Carbon Dioxide 26 mmol/L (22-29); Chloride 107 mmol/L (96-108); Cholesterol 169 mg/dL (<200); Estimated Glomerular Filt Rate > 60; Glucose Random 96 mg/dL (60-115); HDL Cholesterol 39 mg/dL (>40); LDL Cholesterol Calculated 105 mg/dL (<100); Potassium 4.4 mmol/L (3.3-5.1); Sodium 140 mmol/L (135-145); Total Protein 7.4 g/dL (6.5-8.0); Triglycerides 127 mg/dL (<150)
[2024-03-06 12:58] LABS: TSH reflex Free T4 1.46 uIU/mL (0.32-4.0)
[2024-03-06 13:12] LABS: CT PCR NOT DETECTED (Not Detect.); NG PCR NOT DETECTED (Not Detect.)
== END 2024-03-06 10:39 | disposition home or self-care (01) ==
LOC: HO.HHCL 10:38
PROVIDERS: Visit Provider Student in an Organized Health Care Education/Training Program
DX: Z00.00 Encounter for general adult medical examination without abnormal findings (principal); M79.604 Pain in right leg
CPT/HCPCS: 0353U; 73562; 73590; 80053; 80061; 83036; 84443; 85027; 86704; 86706; 86780; 86803; 87340; 87389